=== PATIENT | female | born 1975 | race African-American/Black ===

== ENCOUNTER → 2018-07-21 | Outpatient (REF) | payer OTHER | LOC: M SFHCLERA 11:49 | PROVIDERS: ATTEND Nurse Practitioner Family | DX: R10.9 Unspecified abdominal pain (principal) ==

== ENCOUNTER → 2018-08-06 | Outpatient (CLI) | payer MEDICAID ==
[~2018-08-06] MED LIST: AUGM875T28 PO; IRON TABLET; METF500T13 PO; PRENTAB55 PO
[2018-08-06 18:36] LABS: BASO % 0.4 % (0.0-1.0); EOS # 0.2 10^3/uL (0.0-0.50); HEMATOCRIT 31.9 % (36.0-47.0); HEMOGLOBIN 10.4 g/dl (12.0-15.5); LYMPH # 2.6 10^3/uL (1.5-4.5); LYMPH % 24.3 % (24.0-44.0); MEAN CORPUSCULAR HEMOGLOBIN 25.7 pg (27.0-33.0); MEAN CORPUSCULAR HGB CONC 32.6 g/dl (32.0-36.5); MONO # 0.8 10^3/uL (0.0-0.8); MONO % 7.8 % (0.0-5.0); NEUTROPHILS # 6.9 10^3/uL (1.8-7.7); NEUTROPHILS % 65.2 % (36.0-66.0); PLATELET COUNT, AUTOMATED 395 10^3/uL (150-450); RED BLOOD COUNT 4.04 10^6/uL (4.00-5.40); WHITE BLOOD COUNT 10.5 10^3/uL (4.0-10.0)
[2018-08-06 18:42] LABS: ALBUMIN 3.2 GM/DL (3.2-5.2); ALT/SGPT 24 U/L (12-78); BILIRUBIN,TOTAL 0.1 MG/DL (0.2-1.0); BLOOD UREA NITROGEN 10 MG/DL (7-18); CALCIUM LEVEL 9.2 MG/DL (8.5-10.1); CARBON DIOXIDE LEVEL 23 MEQ/L (21-32); CHLORIDE LEVEL 101 MEQ/L (98-107); CREATININE FOR GFR 0.66 MG/DL (0.55-1.30); GLOMERULAR FILTRATION RATE > 60.0 (>58); GLUCOSE, FASTING 237 MG/DL (70-100); POTASSIUM SERUM 4.4 MEQ/L (3.5-5.1); SODIUM LEVEL 134 MEQ/L (136-145); TOTAL PROTEIN 8.3 GM/DL (6.4-8.2)
[2018-08-06 18:52] LABS: HEMOGLOBIN A1c 8.5 %
[2018-08-06 19:39] LABS: CHLAMYDIA DNA AMPLIFICATION NEGATIVE (NEGATIVE); GC DNA AMPLIFICATION NEGATIVE (NEGATIVE)
[2018-08-07 11:42] LABS: RUBELLA IgG QUALITATIVE IMMUNE (IMMUNE)
[2018-08-07 12:10] LABS: HEPATITIS C VIRUS ABY INDEX 0.1 INDEX (<0.8)
[2018-08-07 12:11] LABS: HIV 1&2 SCREEN CENTAUR NEGATIVE (NEGATIVE)
== END ==
LOC: M SMT 14:59
PROVIDERS: ATTEND Advanced Practice Midwife
DX: O24.111 Pre-existing type 2 diabetes mellitus, in pregnancy, first trimester (principal)

== ENCOUNTER 2018-08-08 03:55 | Emergency (ER) | payer MEDICAID ==
[~2018-08-08] VITALS: Ht 170.2 cm; Wt 114.5 kg
[2018-08-08 03:55] VITALS: BP 157/84
[2018-08-08] MEDS ORDERED: AUGM875T28 PO (04:19)
[2018-08-08] MEDS ORDERED: AUGMENTIN 875 MG TAB PO ONE (04:30)
[2018-08-08] MEDS ORDERED: OXYCODONE/APAP 5MG/325MG(BULK FOR ED) 1 TABLET PO ONE (04:30)
== END 2018-08-08 04:36 | disposition home or self-care (01) ==
LOC: M ED 03:55
DX: O99.89 Other specified diseases and conditions complicating pregnancy, childbirth and the puerperium (principal); L73.2 Hidradenitis suppurativa; Z88.1 Allergy status to other antibiotic agents; Z88.2 Allergy status to sulfonamides; Z3A.09 9 weeks gestation of pregnancy

== ENCOUNTER 2018-08-11 12:08 | Observation (INO) | payer MEDICAID ==
[~2018-08-11] VITALS: Ht 170.2 cm; Wt 114.5 kg
[~2018-08-11 12:08] MED LIST changes: -IRON TABLET; -METF500T13 PO; -PRENTAB55 PO
[2018-08-11] MEDS ORDERED: PERCOCET 5MG/325MG TAB PO ONE (13:00)
--- NOTE | 2018-08-11 15:00 | REP ---
RIGHT GROIN, EXTREMITY NONVASCULAR ULTRASOUND: 08/11/2018. Clinical history: Right groin mass. Solid versus fluid. States for a year. Findings: Right upper inner thigh palpable region shows a complex mass measuring 5.3 x 3.2 x 3.3 cm. The mass has arterial flow within it and there is active bleeding noted from the mass with some arterial swirling visible in an echogenic region. This could be pseudoaneurysm. Impression: 1. There is a 5.3 x 3.2 x 3.3 cm mass in the proximal inner thigh with complex features. Some mild blood flow seen within portions of it. There is some active bleeding noted from this mass and a pattern of arterial swelling that may reflect a possible pseudoaneurysm. Electronically Signed by Vivek Melo MD 08/11/2018 05:56 P
[2018-08-11] MEDS ORDERED: LABETALOL 100 MG TAB PO ONE (15:15)
[2018-08-11] MEDS ORDERED: NS 1,000 ML IV SCH (17:00)
[2018-08-11] MEDS ORDERED: MORPHINE 2 MG/ML 1ML SYRINGE (J2270) IV ONE (17:15)
[2018-08-11] MEDS ORDERED: ONDANSETRON 4MG/2ML VIAL (J2405) IV ONE (17:15)
[2018-08-11 17:19] LABS: HEMATOCRIT 30.6 % (36.0-47.0); MEAN CORPUSCULAR HEMOGLOBIN 26.2 pg (27.0-33.0); MEAN CORPUSCULAR HGB CONC 32.7 g/dl (32.0-36.5); MEAN CORPUSCULAR VOLUME 80.1 fl (80.0-96.0); PLATELET COUNT, AUTOMATED 401 10^3/uL (150-450); RED BLOOD COUNT 3.82 10^6/uL (4.00-5.40); WHITE BLOOD COUNT 9.8 10^3/uL (4.0-10.0)
[2018-08-11 17:34] LABS: INR 1.1; PROTHROMBIN TIME 14.3 SECONDS (12.1-14.4)
[2018-08-11 17:40] LABS: BLOOD UREA NITROGEN 9 MG/DL (7-18); CARBON DIOXIDE LEVEL 22 MEQ/L (21-32); CHLORIDE LEVEL 102 MEQ/L (98-107); CREATININE FOR GFR 0.72 MG/DL (0.55-1.30); GLOMERULAR FILTRATION RATE > 60.0 (>58); GLUCOSE, FASTING 156 MG/DL (70-100); POTASSIUM SERUM 4.3 MEQ/L (3.5-5.1); SODIUM LEVEL 133 MEQ/L (136-145)
[2018-08-11 17:41] LABS: ALBUMIN 3.3 GM/DL (3.2-5.2); ALT/SGPT 21 U/L (12-78); BILIRUBIN,DIRECT 0.2 MG/DL (0.0-0.2); BILIRUBIN,TOTAL 0.3 MG/DL (0.2-1.0); CALCIUM LEVEL 8.9 MG/DL (8.5-10.1); TOTAL PROTEIN 8.9 GM/DL (6.4-8.2)
[2018-08-11] MEDS ORDERED: PRENTAB55 PO (18:03)
[2018-08-11] MEDS ORDERED: IRON TABLET (18:03)
[2018-08-11] MEDS ORDERED: METF500T13 PO (18:03)
[2018-08-11] MEDS ORDERED: AUGM875T28 PO (18:03)
[2018-08-11] MEDS ORDERED: LIDOCAINE W/EPINEPHRINE 1% 20ML VIAL SC ONE (18:15)
[2018-08-11] MEDS ORDERED: THROMBIN SOLN 5,000 UNITS VIAL TOP ONE (18:15)
[2018-08-11] MEDS ORDERED: MORPHINE 4 MG/ML 1ML VIAL/SYRINGE (J2270) IV PRN (18:15)
--- NOTE | 2018-08-11 19:27 | HPE ---
DATE OF ADMISSION: 08/11/2018 This is a 42-year-old female who is 9 weeks and past history of diabetes, presents to the emergency room due to bleeding inguinal mass. The patient has had this mass she says for the last three years. She said that [place] living [place] another [place], she would be given antibiotics and it would shrink, it would come right back. However, today it was bleeding profusely, so she came to the emergency room (ER) for evaluation. In the emergency room (ER), Dr. Walton, one of the general surgeons, who saw the patient and did recommend surgical intervention this evening. The patient is kept nothing by mouth and given IV morphine for pain and she will be sent to the emergency room (ER) for surgical exploration of this site. The patient is awake and oriented times 3; and at this time has mild pain, 4/10. Again, past medical history of diabetes. She has drug allergies to sulfa medications. FAMILY HISTORY: Noncontributory. SOCIAL HISTORY: The patient denies tobacco, alcohol or illicit drugs. MEDICATIONS SHE TAKES HOME ARE FOLLOWS: - Augmentin one tab orally twice daily - metformin 500 mg orally twice daily - multivitamins one tab orally daily. REVIEW OF SYSTEMS: Negative for all 10 major systems, except what is mentioned in the history of present illness. Vital signs: Blood pressure (BP) is 133/63, heart rate is 160 and regular, respiratory rate 20, temperature is 98.3, oxygen saturation 97% on room air. Head atraumatic, normocephalic. Neck supple, no jugular venous distension (JVD). Lungs are clear to auscultation. S1, S2 audible. No murmurs appreciated. Abdomen soft. Positive bowel sounds. No pedal edema. Skin examination: There is a large inguinal mass with two open sinus drainages, draining bright red blood. Neurological examination: The patient awake, alert and oriented times 3. LABORATORY: Sodium 133, potassium 4.3, chloride 102, CO2 22, BUN 9, creatinine 0.72, glucose 156, white blood count (WBC) 9.8, hemoglobin 10.0, hematocrit 30.6, platelets are 401,000. INR is 1.10. IMPRESSION: 1. Right inguinal mass. PLAN: The patient is to be kept nothing by mouth and started on IV fluids with normal saline 150 mL an hour. She is medically optimized at moderate risk for high risk procedure and will continue following the patient's care postoperatively. Dr. Olmstead has been officially consulted, our vascular surgeon, who actually performed the surgery.
[2018-08-11 20:20] VITALS: BP 167/78
[2018-08-11] MEDS: NS 1,000 ML IV SCH (20:59)
[2018-08-12] VITALS: BP 122/64
[2018-08-12] MEDS: NS 1,000 ML IV SCH ×2 (02:49→07:30)
[2018-08-12] MEDS ORDERED: HumaLOG INSULIN (NovoLOG) PER UNIT SC SCH ×3 (06:00→21:00)
[2018-08-12 07:36] LABS: BASO % 0.4 % (0.0-1.0); EOS # 0.1 10^3/uL (0.0-0.50); EOS % 1.5 % (0.0-3.0); HEMATOCRIT 25.8 % (36.0-47.0); HEMOGLOBIN 8.2 g/dl (12.0-15.5); LYMPH # 1.9 10^3/uL (1.5-4.5); LYMPH % 24.6 % (24.0-44.0); MEAN CORPUSCULAR HEMOGLOBIN 25.9 pg (27.0-33.0); MEAN CORPUSCULAR HGB CONC 31.8 g/dl (32.0-36.5); MEAN CORPUSCULAR VOLUME 81.4 fl (80.0-96.0); MONO # 1.2 10^3/uL (0.0-0.8); MONO % 16.5 % (0.0-5.0); NEUTROPHILS # 4.2 10^3/uL (1.8-7.7); NEUTROPHILS % 56.5 % (36.0-66.0); PLATELET COUNT, AUTOMATED 310 10^3/uL (150-450); RED BLOOD COUNT 3.17 10^6/uL (4.00-5.40); WHITE BLOOD COUNT 7.5 10^3/uL (4.0-10.0)
[2018-08-12 08:00] VITALS: BP 126/75
[2018-08-12] MEDS ORDERED: metFORMIN (GLUCOPHAGE) 500 MG TAB PO SCH (08:00)
[2018-08-12 08:02] LABS: BLOOD UREA NITROGEN 6 MG/DL (7-18); CALCIUM LEVEL 8.1 MG/DL (8.5-10.1); CARBON DIOXIDE LEVEL 24 MEQ/L (21-32); CHLORIDE LEVEL 104 MEQ/L (98-107); CREATININE FOR GFR 0.62 MG/DL (0.55-1.30); GLOMERULAR FILTRATION RATE > 60.0 (>58); GLUCOSE, FASTING 141 MG/DL (70-100); SODIUM LEVEL 135 MEQ/L (136-145)
[2018-08-12] MEDS ORDERED: DEXTROSE 50% 50 ML SYRINGE IV PRN (08:30)
[2018-08-12] MEDS ORDERED: ACETAMINOPHEN TAB 650MG DOSE (2X325MG) PO PRN (08:30)
[2018-08-12] MEDS ORDERED: GLUCOSE 4 GM CHEW TABLET PO PRN (08:30)
[2018-08-12] MEDS ORDERED: GLUCAGON FOR INJ 1 MG VIAL (J1610) SC PRN (08:30)
[2018-08-12] MEDS ORDERED: PRENATAL VITAMINS CHEWABLE TABLET PO SCH (09:00)
--- NOTE | 2018-08-12 11:01 | CR.PDOC ---
General Date of Consultation: Aug 11, 2018 Referring Provider: CYNDI SOTO DO Consultation REASON FOR CONSULTATION: Bleeding from mass right groin. HISTORY OF PRESENT ILLNESS:. Ms. Street is a very pleasant 42-year-old patient, currently 9 weeks , who presents to the emergency room with bleeding from her right groin. She has a history of hidradenitis that is remained relatively dormant in the bilateral axillas, but has been intermittently active in the right groin over the past 3 years. In the past, the patient has received treatment with antibiotics and the right groin inflammation has subsided temporarily, but then returns after the antibiotics are complete. She has noticed increased inflammation and tenderness in the right groin over the past week. Ends a few days ago she noticed some bleeding from several areas of excoriation over the mass. She was seen in an ER on Friday and given oral antibiotics and sent home. She returns to the ER tonight with ongoing bleeding from the mass. The emergency room physician ordered an ultrasound of the mass which revealed a 5.3 cm x 3.2 cm x 3.3 cm dense mass in the proximal inner thigh with complex features and some blood flow and swirling within a small area of the central mass suggestive of a pseudoaneurysm. I discussed with the patient that I believe this was the source of the bleeding. Likely when she had increased inflammation in the area eroded through a small superficial artery resulting in a pseudoaneurysm. I discussed with the patient and her fianc at the bedside, but the best option would be to perform a thrombin injection under ultrasound guidance with local anesthesia only to resolve the bleeding issue. She would then need to be admitted for antibiotics and pain control for the inflammation from the hidradenitis. We discussed the risks, benefits and alternatives to thrombin injection. I feel this is a very low risk procedure for the patient. We want to prevent any wrist to her and her fetus at this time. This procedure is done percutaneously with a small amount of local anesthesia and can be done at the bedside under ultrasound guidance which poses little to no risk to the fetus. If this pseudoaneurysm is a source of bleeding. As we suspected the benefit is the bleeding should resolve after thrombosis of the pseudoaneurysm. One of the risks is that there is a chance this is not the source of the bleeding at which point we would have to reevaluate the situation and she may need an additional procedure if that is the case. The patient and her fijosias were thoroughly counseled and she was agreeable to proceed with the procedure and informed consent was obtained. HOME MEDICATIONS: Please see medication reconciliation. PAST MEDICAL HISTORY: 1. Hidradenitis of the bilateral axilla and the right groin. 2. Diabetes. 3. , 9 weeks gestation. 4. Anemia PAST SURGICAL HISTORY: 1. None FAMILY HISTORY: Father: Heart disease Mother: Diabetes SOCIAL HISTORY: Marital status and/or living arrangements: Patient lives with her fijosias Children:. She has no children, but is She denies tobacco, alcohol, or illicit drug use at this time REVIEW OF SYSTEMS: CONSTITUTIONAL: No recent history of fevers chills. HEENT: No history of new vision changes, trouble hearing, trouble swallowing CARDIOVASCULAR: No chest pain, no history of arrhythmias. RESPIRATORY: No shortness of breath, no hemoptysis, no cough. GENITOURINARY: No dysuria or hesitation or retention. MUSCULOSKELETAL: No history of back pain, joint pain or muscle pain. No history of claudication or rest pain. Mass right groin with intermittent inflammation pain and drainage GASTROINTESTINAL: No history of nausea, vomiting, diarrhea, constipation or blood in the stool. SKIN: No rashes or history of skin cancer. NEUROLOGICAL:. No history of headaches, seizures or focal neurologic deficits. PSYCHIATRIC: No history of anxiety, depression or suicidal ideations. ENDOCRINE: + history of diabetes, no history of thyroid disease. HEMATOLOGIC/LYMPHATIC: No history of lymphadenopathy or platelet disorders. Positive history of anemia PHYSICAL EXAMINATION: VITAL SIGNS: Please see below. GENERAL APPEARANCE: Well-appearing patient. No acute distress. HEENT: Normocephalic, vision grossly intact, TMI, normal dentition, no masses or lymphadenopathy of the neck, no carotid bruits RESPIRATORY: Clear to auscultation and no wheezes or rales noted. CARDIOVASCULAR: Regular rate and rhythm. ABDOMEN: Soft, nontender, nondistended, positive bowel sounds. EXTREMITIES: +2 pulses bilateral upper and lower extremities. In the right groin. There is an indurated, erythematous, firm mass, it is very tender to palpation. There are several heaped up areas of tissue that are open excoriated and have slow, continuous oozing of dark blood. NEUROLOGICAL: Moves all extremities equally, no focal neurologic deficits noted. PSYCHIATRIC:. Pleasant and cooperative. LABORATORY DATA: Please see below. IMAGING: I have reviewed the ultrasound images. There is a dense complex mass in the right groin and the superior medial thigh measuring approximately 5 cm x 3 cm x 3 cm and in the superficial central area of this. There is a small pseudoaneurysm. There is likely fed by a small peripheral superficial artery. The pseudoaneurysm is partially thrombosed, but there is still active swirling indicating partial patency. There is a long narrow neck leading up to the pseudoaneurysm through the mass, but the actual artery supplying this cannot be seen and is likely very small. ASSESSMENT/PLAN: 1. Percutaneous thrombin injection of the pseudoaneurysm within the right groin massive inflammation under ultrasound guidance at the bedside. 2. Admit to hospitalist service for antibiotics to treat the hidradenitis and active inflammation in the right groin and pain control postprocedure. Vital Signs/I&O Vital Signs Date Time Temp Pulse Resp B/P (MAP) Pulse Ox O2 Delivery O2 Flow Rate FiO2 08/12/18 08:00 98.1 102 16 126/75 (92) 98 08/11/18 20:13 Room Air I&O- Last 24 Hours up to 6 AM 08/12/18 06:00 Intake Total 1350 ml Output Total 750 ml Balance 600 ml Laboratory Data Labs 24H Laboratory Tests 2 08/11/18 17:05: Nucleated Red Blood Cells % (auto) 0.0, Prothrombin Time 14.3, Prothromb Time International Ratio 1.10, Anion Gap 9, Glomerular Filtration Rate > 60.0, Calcium Level 8.9, Aspartate Amino Transf (AST/SGOT) 14, Alanine Aminotransferase (ALT/SGPT) 21, Alkaline Phosphatase 66, Total Bilirubin 0.3, Direct Bilirubin 0.2, Total Protein 8.9H, Albumin 3.3, Albumin/Globulin Ratio 0.59L 08/11/18 21:23: Bedside Glucose (Misc Panel) 204H 08/12/18 07:13: Nucleated Red Blood Cells % (auto) 0.0, Anion Gap 7L, Glomerular Filtration Rate > 60.0, Calcium Level 8.1L, Immature Granulocyte % (Auto) 0.5, White Blood Count 7.5, Red Blood Count 3.17L, Hemoglobin 8.2L, Hematocrit 25.8L, Mean Corpuscular Volume 81.4, Mean Corpuscular Hemoglobin 25.9L, Mean Corpuscular Hemoglobin Concent 31.8L, Red Cell Distribution Width 14.2, Platelet Count 310, Neutrophils (%) (Auto) 56.5, Lymphocytes (%) (Auto) 24.6, Monocytes (%) (Auto) 16.5H, Eosinophils (%) (Auto) 1.5, Basophils (%) (Auto) 0.4, Neutrophils # (Auto) 4.2, Lymphocytes # (Auto) 1.9, Monocytes # (Auto) 1.2H, Eosinophils # (Auto) 0.1, Basophils # (Auto) 0.0, Blood Urea Nitrogen 6L, Creatinine 0.62, Sodium Level 135L, Potassium Level 4.0, Chloride Level 104, Carbon Dioxide Level 24 CBC/BMP Laboratory Tests 08/11/18 17:05 Red Blood Count 3.82 L, Mean Corpuscular Volume 80.1, Mean Corpuscular Hemoglobin 26.2 L, Mean Corpuscular Hemoglobin Concent 32.7, Red Cell Distribution Width 14.2 08/12/18 07:13 Red Blood Count 3.17 L, Mean Corpuscular Volume 81.4, Mean Corpuscular Hemoglobin 25.9 L, Mean Corpuscular Hemoglobin Concent 31.8 L, Red Cell Distribution Width 14.2, Neutrophils (%) (Auto) 56.5, Lymphocytes (%) (Auto) 24.6, Monocytes (%) (Auto) 16.5 H, Eosinophils (%) (Auto) 1.5, Basophils (%) (Auto) 0.4, Neutrophils # (Auto) 4.2, Lymphocytes # (Auto) 1.9, Monocytes # (Auto) 1.2 H, Eosinophils # (Auto) 0.1, Basophils # (Auto) 0.0, Calcium Level 8.1 L Allergies Coded Allergies: Sulfa Antibiotics (Verified Allergy, Intermediate, rash, 08/08/18) Home Medications Scheduled Amoxicillin/Clavulanate Potas (Augmentin 875-125 mg) 1 Tab Tab, 1 TAB PO BID, (Reported) FILLED 08/08/2018 FOR 10 DAYS Metformin Hydrochloride (Metformin HCl) 500 Mg Tab, 500 MG PO BID, (Reported) Multivitamins/ ( 19) 1 Tab Tab, 1 TAB PO DAILY, (Reported) Miscellaneous Medications [Iron Tablet] , (Reported) QUYNH PIERRE MD Aug 12, 2018 11:00
--- NOTE | 2018-08-12 13:10 | IPNPDOC ---
Date Seen The patient was seen on 08/12/18. Progress Note SUBJECTIVE: Patient seen and examined. She says she is feeling better today- pain controlled with tylenol. She had some sanguinous drainage on her dressing when the nurse changed it this morning, but per the patient and the nurse there was no active bleeding. OBJECTIVE: A&Ox3, NAD CTA-B RR tacchy HR 108 Abd soft NT R groin mass still with erythema and induration today, but less TTP, and no drainage noted. Dressing clean. +2 distal pulses ASSESSMENT AND PLAN: Ms Street is a very pleasant 42yo patient POD #1 from a thrombin injection of a small superficial PSA within an inflammed area of hidradenitis in the right groin. 1. Ok to shower with dressings off. Encourage frequent showers when home. Dry dressings until inflammation resolves. 2. Follow up with Dr Walton outpatient RE: hidradenitis 3. Ok for d/c home from vascular standpoint when stable from a clinical/infection standpoint. 4. Vascular follow up PRN. VS, I&O, 24H, [facility] Vital Signs/I&O Vital Signs Date Time Temp Pulse Resp B/P (MAP) Pulse Ox O2 Delivery O2 Flow Rate FiO2 08/12/18 08:00 98.1 102 16 126/75 (92) 98 08/11/18 20:13 Room Air I&O- Last 24 Hours up to 6 AM 08/12/18 06:00 Intake Total 1350 ml Output Total 750 ml Balance 600 ml Laboratory Data 24H LABS Laboratory Tests 2 08/11/18 17:05: Nucleated Red Blood Cells % (auto) 0.0, Prothrombin Time 14.3, Prothromb Time International Ratio 1.10, Anion Gap 9, Glomerular Filtration Rate > 60.0, Calcium Level 8.9, Aspartate Amino Transf (AST/SGOT) 14, Alanine Aminotransferase (ALT/SGPT) 21, Alkaline Phosphatase 66, Total Bilirubin 0.3, Direct Bilirubin 0.2, Total Protein 8.9H, Albumin 3.3, Albumin/Globulin Ratio 0.59L 08/11/18 21:23: Bedside Glucose (Misc Panel) 204H 08/12/18 07:13: Nucleated Red Blood Cells % (auto) 0.0, Anion Gap 7L, Glomerular Filtration Rate > 60.0, Calcium Level 8.1L, Immature Granulocyte % (Auto) 0.5, White Blood Count 7.5, Red Blood Count 3.17L, Hemoglobin 8.2L, Hematocrit 25.8L, Mean Corpuscular Volume 81.4, Mean Corpuscular Hemoglobin 25.9L, Mean Corpuscular Hemoglobin Concent 31.8L, Red Cell Distribution Width 14.2, Platelet Count 310, Neutrophils (%) (Auto) 56.5, Lymphocytes (%) (Auto) 24.6, Monocytes (%) (Auto) 16.5H, Eosinophils (%) (Auto) 1.5, Basophils (%) (Auto) 0.4, Neutrophils # (Auto) 4.2, Lymphocytes # (Auto) 1.9, Monocytes # (Auto) 1.2H, Eosinophils # (Auto) 0.1, Basophils # (Auto) 0.0, Blood Urea Nitrogen 6L, Creatinine 0.62, Sodium Level 135L, Potassium Level 4.0, Chloride Level 104, Carbon Dioxide Level 24 08/12/18 11:19: Bedside Glucose (Misc Panel) 190H CBC/BMP Laboratory Tests 08/11/18 17:05 Red Blood Count 3.82 L, Mean Corpuscular Volume 80.1, Mean Corpuscular Hemoglobin 26.2 L, Mean Corpuscular Hemoglobin Concent 32.7, Red Cell Distributi on Width 14.2 08/12/18 07:13 Red Blood Count 3.17 L, Mean Corpuscular Volume 81.4, Mean Corpuscular Hemoglobin 25.9 L, Mean Corpuscular Hemoglobin Concent 31.8 L, Red Cell Distr ibution Width 14.2, Neutrophils (%) (Auto) 56.5, Lymphocytes (%) (Auto) 24.6, Monocytes (%) (Auto) 16.5 H, Eosinophils (%) (Auto) 1.5, Basophils (%) (Auto) 0.4, Neutrophils # (Auto) 4.2, Lymphocytes # (Auto) 1.9, Monocytes # (Auto) 1.2 H, Eosinophils # (Auto) 0.1, Basophils # (Auto) 0.0, Calcium Level 8.1 L QUYNH PIERRE MD Aug 12, 2018 13:10
[2018-08-12 13:22] LABS: HEMATOCRIT 24.4 % (36.0-47.0); HEMOGLOBIN 7.9 g/dl (12.0-15.5)
--- NOTE | 2018-08-12 14:42 | REP ---
FIRST TRIMESTER OB ULTRASOUND: 08/12/2018. Clinical history: Supervision of first trimester. Findings: Transabdominal images were performed. Uterus is anteverted. There is a gestational sac in the fundus. Within the sac is a pole having a crown-rump length of 2.8 cm corresponding to 9 weeks 5 days. This would give an EDC of 03/12/2019. heart activity noted at 176. There is no visible subchorionic bleed. The right ovary shows a 3.1 cm cystic area likely a corpus luteum cyst. I do not see free fluid in the pelvis. No other finding. Impression: 1. Single intrauterine gestation at 9 weeks 5 days by crown-rump length giving EDC 03/12/2019, by LMP EDC 03/13/2019. 2. heart rate 176 and regular, no evidence of subchorionic bleed. 3. 3.1 cm right ovarian corpus luteum. Electronically Signed by Vivek Melo MD 08/12/2018 09:24 P
--- NOTE | 2018-08-12 15:39 | RO ---
DATE OF PROCEDURE: 08/11/2018 PREPROCEDURE DIAGNOSIS: Mild bleeding from hydradenitis in the right groin. POSTPROCEDURE DIAGNOSIS: Mild bleeding from hydradenitis in the right groin. OPERATIVE PROCEDURE: Thrombin injection pseudoaneurysm within right groin mass. SURGEON: Ofelia Valdez MD ANESTHESIA: Local INDICATION FOR PROCEDURE: Ms. Street is a very pleasant 42-year-old patient who presented to the ER with a 3 year history of hydradenitis in her axillas which has remained relatively dormant and active hydradenitis in her right groin which waxes and wanes with new antibiotic regimens. Alphonse night she went to the emergency room with oozing and mild bleeding from several areas over the inflammatory area in her right groin. She was sent home with antibiotics and returned to the emergency room today with ongoing oozing and bleeding from several different excoriated areas over the inflamed mass in her right groin. An ultrasound was ordered by our emergency room physician and I reviewed these images. It appeared that the patient had a large inflammatory mass measuring 5 cm x 3 cm x 3 cm and in the center of this mass very superficially there was a small arterial vessel that was feeding a pseudoaneurysmal area. This appeared to be the source of her ongoing oozing. I discussed the risks, benefits and alternative to a thrombin injection to see if this would alleviate the ongoing bleeding that the patient was experiencing. She was agreeable to proceed and informed consent was obtained. DESCRIPTION OF PROCEDURE: The patient was brought to an ultrasound room and an robot technician was kind enough to help me prep and drape her in a sterile fashion. A time-out was performed. Under ultrasound guidance we identified the area of flow within the mass and the neck feeding the flow from a small peripheral arterial source. Local anesthesia was used to anesthetize the skin. 5000 units of thrombin was prepared and a total of 2 mL of thrombin was injected with complete thrombosis of the area under ultrasound guidance. We carefully examined with ultrasound and found there was no additional flow within the mass and also clinically the bleeding stopped once the thrombin had been injected. The patient said this actually made her pain somewhat better, which I did not expect, but was pleasantly surprised to hear. We then thoroughly cleaned the area with soap and water and sterile dressings were applied. The patient tolerated the procedure well. There were no complications. Estimated blood loss from the procedure itself was negligible. There were no specimens. There were no drains. PLAN: Is for the patient to be admitted to the hospitalist service for antibiotics for the inflammation of her hydradenitis of the right groin. No further followup from vascular is needed if she does not have any ongoing bleeding issues. TONE
--- NOTE | 2018-08-13 09:31 | DS.PDOC ---
Discharge Summary General Date of Admission Aug 11, 2018 at 18:10 Date of Discharge 08/12/2018 Attending Physician: SAI MACK MD Specialist/Consultants Involve: QUYNH PIERRE MD Discharge Summary PROCEDURES PERFORMED DURING STAY: Thrombin injection right groin mass. ADMITTING DIAGNOSES: 1. Bleeding right inguinal mass DISCHARGE DIAGNOSES: 1. Right groin pseudoaneurysm 2. Hydradenitis suppurativa, acute inflammation in the right groin 3. Acute anemia 4. 9 weeks 5. Gestational diabetes 6. Obesity COMPLICATIONS/CHIEF COMPLAINT: Pelvic Mass. HISTORY OF PRESENT ILLNESS: 42-year-old female, who is 9 weeks , presented to the ER for bleeding from the right groin. She states she has a history of hydradenitis for the past 3 years, and this spot often leads on and off, however improved after she is given antibiotics. Since Friday night has been using continuously in the right groin and did not improve with antibiotics and she was seen in the ER and then ultrasound in the ER revealed a large inflammatory mass measuring 5 x 3 x 3 cm, with a small arterial vessel in the middle that was feeding the pseudoaneurysm. HOSPITAL COURSE: Vascular surgery was consulted, and patient underwent thrombin injection from the ER. Tolerated procedure well, no complications overnight. In the morning, however she was concerned about her . Doppler was done, could not find the fetus. She normally follows with [facility], and thus her primary OB was called and this concern was discussed. Per Catrachita Kendrick, a this early on would not be detectable by Doppler, but would on ultrasound. Ultrasound revealed a viable with heart rate in the 170s. This, along with the remaining plan of care, was discussed in depth with patient. Per her OB and her vascular surgeon, she was safe for discharge. Of note, patient presented with hemoglobin of 10 on admission,down to 8.2 the next morning after the procedure, and 7.9 later that day prior to discharge. Part of this was likely also dilutional. Patient was consented for transfusion, however declined and stated she would follow-up her blood levels in the clinic. She was discharged home, with instructions to closely follow-up with her PCP and OB. All questions were answered. DISCHARGE MEDICATIONS: Please see below. ALLERGIES: Please see below. PHYSICAL EXAMINATION ON DISCHARGE: VITAL SIGNS: Please see below. GENERAL: NAD, A&Ox3 HEENT: nc, at, EOMI NECK: supple, no JVD CARDIOVASCULAR EXAMINATION: RRR, normal S1 S2 RESPIRATORY EXAMINATION: CTAB, no w/r/r ABDOMINAL EXAMINATION: soft, nt/nd, normoactive bowel sounds EXTREMITIES: 2+ pulses b/l, no cyanosis or edema SKIN: Dressing in right groin dry and intact. No other visible lesions NEUROLOGICAL EXAMINATION: no focal deficits, able to move all extremities LABORATORY DATA: Please see below. IMAGING: * 08/11/2018 right groin ultrasound: There is a 5.3 x 3.2 x 3.3 cm mass in the proximal inner thigh with complex features. Some mild blood flow seen within portions of it. There is some active bleeding noted from this mass and a pattern of arterial swelling that may reflect a possible pseudoaneurysm. * 08/12/2018 pelvic ultrasound: 1. Single intrauterine gestation at 9 weeks 5 days by crown-rump length giving EDC 03/12/2019, by LMP EDC 03/13/2019. 2. heart rate 176 and regular, no evidence of subchorionic bleed. 3. 3.1 cm right ovarian corpus luteum. PROGNOSIS: good ACTIVITY: As tolerated. DIET: consistent carb DISPOSITION: 01 Home, Self-Care. DISCHARGE INSTRUCTIONS: 1. Follow-up with PCP within 1 week 2. Follow-up with OB within the week for care 3. Follow-up on CBC, H&H as outpatient 4. Return to ER for emergency DISCHARGE CONDITION: Stable. TIME SPENT ON DISCHARGE: Greater than 35 minutes. Vital Signs/I&Os Vital Signs Date Time Temp Pulse Resp B/P (MAP) Pulse Ox O2 Delivery O2 Flow Rate FiO2 08/12/18 08:00 98.1 102 16 126/75 (92) 98 08/11/18 20:13 Room Air I&O- Last 24 Hours up to 6 AM 08/13/18 05:59 Intake Total 1590 ml Output Total 750 ml Balance 840 ml Laboratory Data Labs 24H Laboratory Tests 2 08/12/18 11:19: Bedside Glucose (Misc Panel) 190H CBC/BMP Laboratory Tests 08/12/18 13:02 FSBS Laboratory Tests Test 08/12/18 11:19 Range/Units Bedside Glucose (Misc Panel) 190 70-105 MG/DL Discharge Medications Scheduled Amoxicillin/Clavulanate Potas (Augmentin 875-125 mg) 1 Tab Tab, 1 TAB PO BID, (Reported) FILLED 08/08/2018 FOR 10 DAYS Metformin Hydrochloride (Metformin HCl) 500 Mg Tab, 500 MG PO BID, (Reported) Multivitamins/ ( 19) 1 Tab Tab, 1 TAB PO DAILY, (Reported) Miscellaneous Medications [Iron Tablet] , (Reported) Allergies Coded Allergies: Sulfa Antibiotics (Verified Allergy, Intermediate, rash, 08/08/18) GME ATTESTATION GME ATTESTATION My faculty preceptor for this patient encounter was physically present during the encounter and was fully available. All aspects of the patient interview, examination, medical decision making process, and medical care plan development were reviewed and approved by the faculty preceptor. The faculty preceptor is aware and concurs with the plan as stated in the body of this note and will attest to such by his/her cosignature. KEITH BOGGS DO Aug 13, 2018 09:31
== END 2018-08-12 16:05 | disposition home or self-care (01) ==
LOC: M ED 12:08 → M ED INP 18:10 → M PED 20:20
PROVIDERS: ADMIT Internal Medicine; ATTEND Internal Medicine
DX: O99.411 Diseases of the circulatory system complicating pregnancy, first trimester (principal); I72.8 Aneurysm of other specified arteries; O99.711 Diseases of the skin and subcutaneous tissue complicating pregnancy, first trimester; L73.2 Hidradenitis suppurativa; O99.011 Anemia complicating pregnancy, first trimester; O99.211 Obesity complicating pregnancy, first trimester; O24.415 Gestational diabetes mellitus in pregnancy, controlled by oral hypoglycemic drugs; Z3A.09 9 weeks gestation of pregnancy; Z79.84 Long term (current) use of oral hypoglycemic drugs; Z79.899 Other long term (current) drug therapy; Z88.2 Allergy status to sulfonamides; E66.9 Obesity, unspecified; D64.9 Anemia, unspecified
CPT/HCPCS: 36299; 36415; 76801; 76882; 76942; 80048; 80076; 85014; 85018; 85025; 85027; 85610; 96361; 96374; 96375; 96376; 99285; J2270; J2405

== ENCOUNTER → 2018-09-01 | Outpatient (REF) | payer MEDICAID ==
[~2018-09-01] MED LIST changes: +IRON TABLET; +METF500T13 PO; +PRENTAB55 PO
== END ==
LOC: M LAB REF 17:59
PROVIDERS: ATTEND Obstetrics & Gynecology
DX: O09.511 Supervision of elderly primigravida, first trimester (principal)

== ENCOUNTER → 2018-09-17 | Outpatient (REF) | payer MEDICAID | LOC: M LAB REF 13:03 | PROVIDERS: ATTEND Obstetrics & Gynecology | DX: O24.112 Pre-existing type 2 diabetes mellitus, in pregnancy, second trimester (principal) ==

== ENCOUNTER → 2018-10-15 | Outpatient (CLI) | payer MEDICAID ==
--- NOTE | 2018-10-15 11:50 | REP ---
OB ULTRASOUND: Real-time sonographic evaluation of gravid uterus performed. There is a single living intrauterine gestation, estimated gestational age 18 weeks 5 days, EDC 03/13/2019. Today's measurements indicate appropriate growth. BPD 41 mm = 18 weeks 3 days, 44th percentile HC 151 mm = 18 weeks 1 day, 33rd percentile AC 141 mm = 19 weeks 3 days, 67th percentile Femur length 31 mm = 19 weeks 5 days, 74th percentile HC/AC ratio 1.07, within normal range. Estimated weight 289 grams is at the 73rd percentile. Cervix is closed and measures 3.1 cm in length. heart rate 149 beats per minute. SEEN/GROSSLY UNREMARKABLE Lateral ventricles Yes Posterior fossa Yes Upper lip Yes Four-chamber heart No LVOT No RVOT No Stomach Yes Cord insertion Yes Three vessel cord Yes Kidneys Yes Bladder Yes Spine Yes position: Vertex. Placenta: Anterior and grade 0 with no previa or abruption. Amniotic fluid: Within normal limits. Electronically Signed by Gus Frederick MD 10/15/2018 04:36 P
== END ==
LOC: M RAD 10:25
PROVIDERS: ATTEND Obstetrics & Gynecology
DX: O24.112 Pre-existing type 2 diabetes mellitus, in pregnancy, second trimester (principal); Z3A.18 18 weeks gestation of pregnancy

== ENCOUNTER → 2018-10-30 | Outpatient (CLI) | payer MEDICAID, OTHER ==
[2018-10-30 14:04] LABS: HEMOGLOBIN A1c 7.1 %
== END ==
LOC: M SMT 10:40
PROVIDERS: ATTEND Obstetrics & Gynecology
DX: O24.112 Pre-existing type 2 diabetes mellitus, in pregnancy, second trimester (principal); Z3A.00 Weeks of gestation of pregnancy not specified

== ENCOUNTER → 2018-11-03 | Outpatient (CLI) | payer OTHER ==
--- NOTE | 2018-11-03 10:21 | REP ---
Obstetric ultrasound for anatomy follow-up: Comparison is 10/15/2018. On the comparison study the four-chamber view of the heart and right and left cardiac ventricular outflow tracts could not be optimally demonstrated because of position. The remainder of the anatomy was unremarkable. On the study today the four-chamber view of the heart and the cardiac right and left ventricular outflow tracts are optimally demonstrated and are unremarkable. The remainder of the anatomy was unremarkable previously and is not repeated today. There are no anomalies. There is a single intrauterine gestation in a vertex presentation. There is movement and cardiac activity. The heart rate is 153 beats per minute. The anterior. The placenta is anterior. There is no placenta previa or abruptio. The placenta is grade 1 maturity. Multiple venous lakes are noted within the placenta, slightly more than typical, follow-up of this finding is recommended. The amniotic fluid volume subjectively is low normal. The amniotic fluid index is 9.1, (9.6 - 21.5). Gestational Age: By LMP: 21 w 3 d By First US: 21 w 4 d By Today's US: 20 w 6 d Weight: 382 gm/ 0 lbs, 13 oz Wt% 29% for 21 w 3 d Impression: Amniotic fluid volume is low normal. There are no anomalies. Electronically Signed by Gus Romero MD 11/03/2018 10:13 A
== END ==
LOC: M RAD 08:05
PROVIDERS: ATTEND Obstetrics & Gynecology
DX: O24.112 Pre-existing type 2 diabetes mellitus, in pregnancy, second trimester (principal); Z3A.21 21 weeks gestation of pregnancy

== ENCOUNTER → 2018-12-30 | Outpatient (CLI) | payer OTHER ==
--- NOTE | 2018-12-30 20:33 | REP ---
Clinical: Anatomical evaluation. Comparison: 11/03/2018 . Findings: Examination demonstrates a single live intrauterine in cephalic presentation. motion is identified by technologist. Placenta is noted anterior and grade one without evidence for placenta previa or abruption. Amniotic fluid volume is normal. Cervix measures 3.5 cm in length and appears closed. No evidence for nuchal cord. Gestational age by LMP 29 weeks 4 days with APRIL 03/13/2019 . Gestational age by current measurements 30 weeks 6 days with APRIL 03/04/2019 . FHR equals 135 beats per minute. Estimated weight 1672 grams ( 73rd percentile). Amniotic fluid index: 16.1 cm (9.1 - 23.3) Umbilical cord SD ratio: 2.48 Anatomical assessment demonstrates normal structures including cranium, cavum, facial features, lungs, four-chamber heart/ventricular outflow tracts, diaphragm, stomach, three-vessel cord, kidneys/bladder, and spine. Impression: single live intrauterine in cephalic presentation demonstrating appropriate interval growth. No gross abnormalities are identified. Electronically Signed by Christopher Lopez MD 12/30/2018 08:25 P
== END ==
LOC: M RAD 07:24
PROVIDERS: ATTEND Obstetrics & Gynecology
DX: O24.112 Pre-existing type 2 diabetes mellitus, in pregnancy, second trimester (principal); Z3A.30 30 weeks gestation of pregnancy

== ENCOUNTER → 2018-12-31 | Outpatient (REF) | payer OTHER | LOC: M LAB REF 17:06 | PROVIDERS: ATTEND Obstetrics & Gynecology | DX: Z11.3 Encounter for screening for infections with a predominantly sexual mode of transmission (principal) ==

== ENCOUNTER → 2019-01-19 | Outpatient (CLI) | payer OTHER ==
--- NOTE | 2019-01-19 18:16 | REP ---
Clinical: Sternal diabetes. well-being. Comparison: 12/30/2018 . Findings: Examination demonstrates a single live intrauterine in cephalic presentation. motion is identified by technologist. Placenta is noted anterior and grade one without evidence for placenta previa or abruption. Amniotic fluid volume is normal. No evidence for nuchal cord. Gestational age by LMP 32 weeks 3 days with APRIL 03/13/2019 . Gestational age by current measurements 33 weeks 1 day with APRIL 03/08/2019 . FHR equals 152 beats per minute. Estimated weight 2237 grams ( 68th percentile). Amniotic fluid index: 9.2 cm (8.5 - 24.3) Umbilical cord SD ratio: 2.26 (2.30 - 3.30). Impression: Single live advanced gestation in cephalic presentation demonstrating appropriate estimated weight/growth. Electronically Signed by Christopher Lopez MD 01/19/2019 06:07 P
== END ==
LOC: M RAD 17:28
PROVIDERS: ATTEND Obstetrics & Gynecology
DX: O24.112 Pre-existing type 2 diabetes mellitus, in pregnancy, second trimester (principal)

== ENCOUNTER → 2019-02-09 | Outpatient (REF) | payer OTHER | LOC: M LAB REF 17:25 | PROVIDERS: ATTEND Obstetrics & Gynecology | DX: O24.113 Pre-existing type 2 diabetes mellitus, in pregnancy, third trimester (principal); Z3A.00 Weeks of gestation of pregnancy not specified ==

== ENCOUNTER → 2019-02-09 | Outpatient (CLI) | payer OTHER ==
--- NOTE | 2019-02-09 20:00 | REP ---
OB ULTRASOUND: Real-time sonographic evaluation of the gravid uterus performed. There is a single living intrauterine gestation, estimated gestational age 35 weeks 3 days, EDC 03/13/2019. Today's measurements indicate appropriate growth, although percentiles are increasing compared to the prior study of 01/19/2019. BPD 90 mm = 36 weeks 3 days, 65th percentile HC 329 mm = 37 weeks 3 days, 84th percentile AC 345 mm = 38 weeks 3 days, greater than 95th percentile FL 73 mm = 37 weeks 1 day, 75th percentile HC/AC ratio 0.95, within normal range. Estimated weight 3302 grams, 93rd percentile, previously 68th percentile. heart rate 153 beats per minute. Amniotic fluid within normal limits, MILES 12.6 within normal range of 7.8 to 24.9. S/D ratio 2.06, within normal range of 2.0 to 3.0. RI 0.52, below normal range of 0.59 to 0.75. position vertex. Placenta anterior and grade 2 with no previa or abruption. Electronically Signed by Gus Frederick MD 02/10/2019 02:34 P
== END ==
LOC: M RAD 17:30
PROVIDERS: ATTEND Obstetrics & Gynecology
DX: O24.112 Pre-existing type 2 diabetes mellitus, in pregnancy, second trimester (principal); Z3A.35 35 weeks gestation of pregnancy

== ENCOUNTER → 2019-02-09 | Outpatient (CLI) | payer OTHER ==
[2019-02-09 17:39] LABS: HEMOGLOBIN A1c 6.4 %
== END ==
LOC: M SMT 14:36
PROVIDERS: ATTEND Obstetrics & Gynecology
DX: O24.113 Pre-existing type 2 diabetes mellitus, in pregnancy, third trimester (principal)

== ENCOUNTER 2019-03-02 13:35 | Inpatient (IN) | payer OTHER ==
[2019-03-02] VITALS (7 sets, daily range): BP systolic 109–141; BP diastolic 68–80
[~2019-03-02] VITALS: Ht 170.2 cm; Wt 108.5 kg
[2019-03-02 15:30] LABS: HEMATOCRIT 32.4 % (36.0-47.0); HEMOGLOBIN 10.7 g/dl (12.0-15.5); MEAN CORPUSCULAR HEMOGLOBIN 27.3 pg (27.0-33.0); MEAN CORPUSCULAR VOLUME 82.7 fl (80.0-96.0); PLATELET COUNT, AUTOMATED 312 10^3/uL (150-450); RED BLOOD COUNT 3.92 10^6/uL (4.00-5.40); WHITE BLOOD COUNT 5.6 10^3/uL (4.0-10.0)
[2019-03-02] MEDS: miSOPROStol 50 MCG 1/2 TAB (S0191) SL SCH ×2 (16:12→21:54)
--- NOTE | 2019-03-02 16:57 | HPE ---
DATE OF ADMISSION: 03/02/2019 A 42-year-old (G) 1, para (P) 0 female at 38-3/7 weeks gestation by last menstrual period (LMP), consistent with an 8-week ultrasound, estimated date of confinement (EDC) of 03/13/2019, presents for labor induction. The indication for induction less than 39 weeks is type 2 diabetes with non-reasurring testing. She had decreased variability and a late deceleration on routine monitoring in the office. She had occasional contractions. She denies vaginal bleeding. COURSE: The patient initiated care at 8 weeks gestation on 08/06/2018. Her first trimester blood pressure was 124/64. She was initially on metformin for her diabetes. As she followed her sugars and control became worse, she eventually transitioned to insulin. She did have overall improvement in her hemoglobin A1c levels with initial hemoglobin A1c of 8.5. Her most recent hemoglobin A1c was improved at 6.4. MEDICAL HISTORY: 1. Type 2 diabetes. 2. Hidradenitis suppurativa. SURGICAL HISTORY: 1. Dilation and curettage (D and C) in 2009. ALLERGIES: SULFA. SOCIAL HISTORY: The patient lives in [place]. She is currently from her . She denies cigarettes, alcohol, or drug use. FAMILY HISTORY: Noncontributory. PHYSICAL EXAMINATION: Blood pressure 134/82, weight 241. No apparent distress. Head and neck exam: Normal. Lungs: Clear. Heart: Regular rate and rhythm. Abdomen: Nontender, gravid. heart tones are category 1 here. Sterile vaginal exam: 1 cm, 50%, -2, posterior, soft vertex. Contractions: Irregular. Extremities: Nontender. LABS: Blood type O+, Rubella immune, RPR nonreactive. GBS positive October 2018. ASSESSMENT: A 42-year-old 1 at 38-3/7 weeks gestation, type 2 diabetes - on insulin, presents for labor induction due to nonreassuring testing. PLAN: The patient was admitted on 03/02/2019. Will initiate antibiotics for Group B Streptococcus (GBS) prophylaxis at the onset of labor. Risks of induction were discussed.
[2019-03-03] VITALS (61 sets, daily range): BP systolic 98–193; BP diastolic 55–92
[2019-03-03] MEDS ORDERED: OXYTOCIN DRIP 30 UNITS in APPROPRIATE DILUENT 1 EA IV SCH ×2 (01:30→16:52)
[2019-03-03] MEDS ORDERED: PROMETHAZINE INJ 25 MG/ML VIAL (J2550) IV ONE (01:30)
[2019-03-03] MEDS ORDERED: BUTORPHANOL 2 MG/ML INJ (J0595) IV ONE (01:30)
[2019-03-03] MEDS ORDERED: PENICILLIN G POTASSIUM IV 5 MU in D5W MINI-BAG PLUS 100 ML IV STA (01:45)
[2019-03-03] MEDS: LR 1,000 ML IV SCH ×3 (01:47→16:52)
[2019-03-03] MEDS ORDERED: FENTANYL 2MCG/ML ROPIVACAINE 0.2% IN 0.9% NACL 100ML IVBAG As Ordered ONE (02:03)
[2019-03-03] MEDS ORDERED: EPIDURAL COMMENT XX SCH (02:45)
[2019-03-03] MEDS ORDERED: REFRIGERATOR IV KEYS XX PRN (02:45)
[2019-03-03] MEDS ORDERED: EPIDURAL/PCA KEYS XX PRN (02:45)
[2019-03-03] MEDS ORDERED: ONDANSETRON 4MG/2ML VIAL (J2405) IV PRN ×3 (02:45→17:15)
[2019-03-03] MEDS ORDERED: LACTATED RINGER'S 1000 ML IV PRN (02:45)
[2019-03-03] MEDS ORDERED: NALOXONE INJ 0.4 MG/1 ML VIAL (J2310) IV PRN ×3 (02:45→16:00)
[2019-03-03] MEDS ORDERED: FENTANYL/ROPIVACAINE/NACL BAG 100 ML EPIDURAL SCH (02:45)
[2019-03-03] MEDS ORDERED: diphenhydrAMINE INJ 50MG/ML VIAL (J1200) IV PRN ×2 (02:45→16:00)
[2019-03-03] MEDS: ePHEDrine SULFATE 25 MG/5 ML(5MG/ML) SYRINGE IV PRN ×2 (03:44→03:54)
[2019-03-03] MEDS: PENICILLIN G POTASSIUM IV 2.5 MU in APPROPRIATE DILUENT 1 EA IV SCH ×3 (06:13→14:11)
[2019-03-03] MEDS ORDERED: LACTATED RINGER'S 1000 ML IV STA (14:25)
[2019-03-03] MEDS ORDERED: AZITHROMYCIN INJ 500 MG, VIAL MATE ADAPTER 1 EACH in D5W 250 ML IV ONE (14:30)
[2019-03-03] MEDS ORDERED: BICITRA 30ML SOLN UDC PO ONE (14:30)
[2019-03-03] MEDS ORDERED: BICITRA 30ML SOLN UDC As Ordered ONE (14:32)
[2019-03-03] MEDS ORDERED: NALBUPHINE HCL 10 MG/ML AMP (J2300) IV PRN (16:00)
[2019-03-03] MEDS ORDERED: METOCLOPRAMIDE INJ 10MG/2ML VIAL (J2765) IV PRN (16:00)
[2019-03-03 16:24] LABS: CORD GAS ABE A -3.8; CORD GAS HCO3 A 24.3 MEQ/L; CORD GAS O2 SAT A 30.7 %; CORD GAS PCO2 A 56.3 mmHg; CORD GAS PH A 7.253 UNITS; CORD GAS PO2 A 15.5 mmHg; CORD GAS SBC A 19.7 MEQ/L
[2019-03-03 16:27] LABS: CORD GAS ABE V -6.3; CORD GAS PCO2 V 54.3 mmHg; CORD GAS PO2 V 26.9 mmHg; CORD GAS SBC V 18.6 MEQ/L; CORD GAS TCO2 V 23.7 MEQ/L
[2019-03-03 16:28] LABS: CORD GAS PH V 7.226 UNITS
[2019-03-03] MEDS ORDERED: MOM 30ML SUSPENSION UDC PO PRN (17:00)
[2019-03-03] MEDS ORDERED: PERCOCET 5MG/325MG TAB PO PRN ×2 (17:00→17:15)
[2019-03-03] MEDS ORDERED: KETOROLAC 30 MG/ML VIAL (J1885) IV SCH (17:00)
[2019-03-03] MEDS ORDERED: MEASLES,MUMPS,RUBELLA VACCINE INJ (MMR-II) (90707) SC SCH (17:00)
[2019-03-03] MEDS ORDERED: RHOGAM 300 MCG (1500 IU) INJ (J2790) IM SCH (17:00)
[2019-03-03] MEDS ORDERED: fentaNYL 100 MCG/2 ML INJECTION (J3010) IV PRN (17:15)
[2019-03-03] MEDS ORDERED: LR 1,000 ML IV SCH (17:15)
[2019-03-03] MEDS: DOCUSATE SODIUM 100 MG CAP PO SCH (21:00)
[2019-03-03] MEDS: KETOROLAC 30 MG/ML VIAL (J1885) IV SCH (21:52)
[2019-03-04] MEDS: LR 1,000 ML IV SCH ×3 (00:52→16:52)
[2019-03-04 02:29] VITALS: BP 133/75
[2019-03-04] MEDS: KETOROLAC 30 MG/ML VIAL (J1885) IV SCH ×2 (04:32→09:47)
[2019-03-04 06:22] VITALS: BP 116/69
--- NOTE | 2019-03-04 06:36 | RO ---
DATE OF PROCEDURE: 03/03/2019 PREOPERATIVE DIAGNOSIS: Inability to augment labor, persistent category II heart rate tracing. POSTOPERATIVE DIAGNOSIS: Inability to augment labor, persistent category II heart rate tracing. PROCEDURE PERFORMED: Primary lower transverse section. SURGEON: Yelena Dove MD FIRER WATERTENDER: Khalida Kendrick CNM ANESTHESIA: Epidural. ESTIMATED BLOOD LOSS: 800 mL. INTRAVENOUS FLUIDS: 1100 mL of lactated Ringer solution. URINE OUTPUT: 150 mL. PREOPERATIVE ANTIBIOTICS: 2 grams of Ancef, 500 mg of azithromycin. SPECIMEN: Cord gases which were for 7.25/7.22, base excesses of -3.8/-6.3 respectively. OPERATIVE FINDINGS: Live born female , Apgars 8 and 9, weight was 3570 grams or 7 pounds 14 ounces. DESCRIPTION OF OPERATION: After informed consent was obtained and written consent was reviewed, the patient was brought to operating room where she was prepped and draped in a normal sterile fashion. She previously had a Buchanan catheter that was placed and set to gravity. A time out in the operating room was then performed identifying the patient, the procedure be performed as well as drug allergies. Anesthesia was tested and deemed to be adequate. A Pfannenstiel skin incision was then made and this was carried down to the underlying rectus fascia. The fascia was scored and this incision was extended bilaterally. The fascia was then dissected off the underlying rectus muscles both superiorly and inferiorly. The rectus muscles were in the midline. The peritoneum was then entered. Mobius retractor was then placed. Next, the vesicouterine peritoneum was tented and excised to create a bladder flap. A curvilinear incision was then made in the lower uterine segment and this incision was extended manually. The head was brought to the level of the incision atraumatically and delivered along with shoulders and corpus. Cord was clamped times two and was cut and was taken over to the warmer with a good cry where Dr. Garvin, community marketing coordinator, awaited. Cord gases were then obtained. Placenta was then delivered grossly intact. The uterus was then cleared of all clots and debris. The uterine incision was then closed in two layers using #0 Vicryl, first in a running locking fashion followed by second layer for imbrication in a running nonlocking fashion. A [id number] stitch was placed for hemostasis. The abdomen was then suctioned and the surgical sites were reinspected and noted be hemostatic. The Mobius retractor was then removed. The anterior peritoneum was then reapproximated with #3-0 Vicryl. The rectus muscles were reapproximated with #3-0 Vicryl. The fascia was then closed with #0 Vicryl in a running nonlocking fashion. The subcutaneous tissue was then irrigated and suctioned. The subcutaneous tissue was reapproximated with #3-0 Vicryl. Several subdermal stitches were placed with #3-0 Vicryl. The skin was closed with #4-0 Monocryl in a subcuticular fashion. The incision was then cleaned and dried and was dressed. The patient was then taken to recovery in stable condition. Counts were correct. Khalida Kendrick, my rn medical surgical, played an essential role during surgery. She assisted with tissue identification, retraction, delivery of the , as well as wound closure. Mother decided to name her daughter Saumya Greenwood. TONE
[2019-03-04 06:54] LABS: HEMATOCRIT 25.2 % (36.0-47.0); MEAN CORPUSCULAR HEMOGLOBIN 27.2 pg (27.0-33.0); MEAN CORPUSCULAR HGB CONC 32.9 g/dl (32.0-36.5); MEAN CORPUSCULAR VOLUME 82.6 fl (80.0-96.0); PLATELET COUNT, AUTOMATED 259 10^3/uL (150-450); RED BLOOD COUNT 3.05 10^6/uL (4.00-5.40); WHITE BLOOD COUNT 9.7 10^3/uL (4.0-10.0)
[2019-03-04 06:56] LABS: HEMOGLOBIN 8.3 g/dl (12.0-15.5)
--- NOTE | 2019-03-04 07:04 | IPNPDOC ---
Text Note Date of Service The patient was seen on 03/04/19. NOTE Postop Day 1 s/p primary LTCS; uncomplicated S: Pain well controlled, lochia and bleeding decreasing, has not voided yet, ambulating without assistance, not tolerating regular diet yet but will be ordering breakfast.Formula feeding. O: vitals stable Heart: RRR, no murmurs Lungs: CTA bilaterally Abd: Fundus firm at U, dressing dry and intact Ext: no edema, nontender bilaterally, Tristen's sign negative bilaterally A/P: 42 yo G1 now P1. /postop day 1 s/p primary LTCS. Hemodynamically stable, afebrile, good pain control. Recovering well. -Routine postoperative care and advancement. -Anticipate discharge tomorrow VS,Mike, I+O VS, Mike, I+O Laboratory Tests 03/04/19 06:36 Red Blood Count 3.05 L, Mean Corpuscular Volume 82.6, Mean Corpuscular Hemoglobin 27.2, Mean Corpuscular Hemoglobin Concent 32.9, Red Cell Distribution Width 14.2 Vital Signs Date Time Temp Pulse Resp B/P (MAP) Pulse Ox O2 Delivery O2 Flow Rate FiO2 03/04/19 06:22 98.6 79 18 116/69 (85) 95 I&O- Last 24 Hours up to 6 AM 03/04/19 06:00 Intake Total 2045 ml Output Total 4625 ml Balance -2580 ml GME ATTESTATION GME ATTESTATION My faculty preceptor for this patient encounter was physically present during the encounter and was fully available. All aspects of the patient interview, examination, medical decision making process, and medical care plan development were reviewed and approved by the faculty preceptor. The faculty preceptor is aware and concurs with the plan as stated in the body of this note and will attest to such by his/her cosignature. WINNIE LAYTON DO Mar 04, 2019 07:04
[2019-03-04] MEDS: DOCUSATE SODIUM 100 MG CAP PO SCH ×2 (09:46→19:26)
[2019-03-04] MEDS: PRENATAL VITAMINS CHEWABLE TABLET PO SCH (09:46)
[2019-03-04 10:00] VITALS: BP 106/56
[2019-03-04 14:00] VITALS: BP 108/58
[2019-03-04] MEDS: PERCOCET 5MG/325MG TAB PO PRN ×2 (15:59→21:44)
[2019-03-04 18:00] VITALS: BP 125/71
[2019-03-04] MEDS: IBUPROFEN 800 MG TAB PO SCH (19:26)
[2019-03-05] MEDS: IBUPROFEN 800 MG TAB PO SCH ×2 (01:28→09:49)
[2019-03-05 06:01] VITALS: BP 125/67
[2019-03-05] MEDS: PERCOCET 5MG/325MG TAB PO PRN (06:12)
[2019-03-05] MEDS ORDERED: PERCOCET PO (06:49)
[2019-03-05] MEDS ORDERED: PERC7.5T11 PO (06:53)
[2019-03-05] MEDS ORDERED: IBUP80TA PO (06:55)
[2019-03-05] MEDS: PRENATAL VITAMINS CHEWABLE TABLET PO SCH (08:27)
[2019-03-05] MEDS: DOCUSATE SODIUM 100 MG CAP PO SCH (08:27)
[2019-03-05] MEDS ORDERED: ADACEL/BOOSTRIX VACCINE (DIPHTH/PERTUSS/ACELL/TETANUS)0.5ML SYR (90715) IM ONE (09:00)
--- NOTE | 2019-03-06 08:48 | DSES ---
DATE OF ADMISSION: 03/02/2019 DATE OF DISCHARGE: 03/05/2019 DISCHARGE DIAGNOSIS: Primary low transverse section. PROCEDURES PERFORMED WHILE IN HOSPITAL: 1. Primary low transverse section. 2. Spinal anesthesia. HISTORY OF PRESENT ILLNESS: Ms. Street is a 42-year-old, (G) 1 now para (P) 1, who presented to labor and delivery on 03/02/2019 for induction of labor secondary to type 2 diabetes with nonreassuring testing (decreased variability and late deceleration). Due to persistent category II heart tracing and inability to augment labor, she underwent an uncomplicated primary low transverse section on 03/03/2019, which was productive of a liveborn female , scores 8 and 9. Weight was 3570 grams or 7 pounds 14 ounces. Estimated blood loss was 800 mL. Ms. Street did well postoperatively and by postoperative day #2 had met all discharge criteria. She was discharged home in stable condition. PHYSICAL EXAMINATION: On day of discharge, her vital signs are stable. She is afebrile. General appearance: Well-appearing, no acute distress. Abdomen: Soft, appropriately tender. Fundus firm below the umbilicus. Incision: Dressing is dry and intact. Extremities: Negative for calf tenderness. DISCHARGE INSTRUCTIONS: 1. Instructed to remain on pelvic rest for 6 weeks. 2. To remove her dressing in 5-7 days. 3. To report severe pain, heavy vaginal bleeding, fever, or incisional issues. DISCHARGE MEDICATIONS: - ibuprofen - Percocet FOLLOWUP: 2 weeks at [facility] for incision check.
[2019-03-16] MEDS ORDERED: OXYC1TAB23 PO (14:53)
== END 2019-03-05 11:00 | disposition home or self-care (01) | DRG 540 ==
LOC: M LDI 13:35 → M OBS 03-03 18:00
PROVIDERS: ADMIT Specialist; ATTEND Obstetrics & Gynecology
PROC: 3E0P7GC Introduction of Other Therapeutic Substance into Female Reproductive, Via Natural or Artificial Opening (ICD-10-PCS; 2019-03-02)
PROC: 10D00Z1 Extraction of Products of Conception, Low, Open Approach (ICD-10-PCS; principal; 2019-03-03 14:48)
DX: O24.12 Pre-existing type 2 diabetes mellitus, in childbirth (principal); E11.9 Type 2 diabetes mellitus without complications; Z3A.38 38 weeks gestation of pregnancy; Z37.0 Single live birth; O76 Abnormality in fetal heart rate and rhythm complicating labor and delivery; Z79.4 Long term (current) use of insulin; O99.824 Streptococcus B carrier state complicating childbirth; O62.0 Primary inadequate contractions

== ENCOUNTER 2019-11-06 12:47 | Emergency (ER) | payer MEDICAID, OTHER ==
[~2019-11-06] VITALS: Ht 170.2 cm; Wt 100.2 kg
[~2019-11-06 12:47] MED LIST changes: +IBUP80TA PO; +OXYC1TAB23 PO; +PERC5TAB12 PO; +PERC7.5T11 PO; +PERCOCET PO
[2019-11-06 13:43] LABS: BASO # 0.1 10^3/uL (0.0-0.2); BASO % 0.8 % (0.0-1.0); EOS # 0.3 10^3/uL (0.0-0.5); EOS % 3.3 % (0.0-3.0); HEMATOCRIT 30.3 % (36.0-47.0); HEMOGLOBIN 9.3 g/dl (12.0-15.5); MEAN CORPUSCULAR HGB CONC 30.7 g/dl (32.0-36.5); MEAN CORPUSCULAR VOLUME 78.1 fl (80.0-96.0); MONO # 0.7 10^3/uL (0.0-0.8); MONO % 9.1 % (0.0-5.0); NEUTROPHILS # 4.6 10^3/uL (1.5-8.5); NEUTROPHILS % 60.5 % (36.0-66.0); PLATELET COUNT, AUTOMATED 388 10^3/uL (150-450); RED BLOOD COUNT 3.88 10^6/uL (4.00-5.40); WHITE BLOOD COUNT 7.6 10^3/uL (4.0-10.0)
[2019-11-06 14:01] LABS: ERYTHROCYTE SEDIMENTATION RATE 90 mm/hr (0-20)
[2019-11-06 14:03] LABS: INR 1.14; PROTHROMBIN TIME 14.3 SECONDS (11.8-14.0)
[2019-11-06 14:20] LABS: ALBUMIN 3.2 GM/DL (3.2-5.2); ALT/SGPT 21 U/L (12-78); BILIRUBIN,TOTAL 0.3 MG/DL (0.2-1.0); BLOOD UREA NITROGEN 9 MG/DL (7-18); C REACTIVE PROTEIN QUANTITATIV 3.71 MG/DL (0.00-0.30); CALCIUM LEVEL 8.3 MG/DL (8.5-10.1); CARBON DIOXIDE LEVEL 24 MEQ/L (21-32); CHLORIDE LEVEL 105 MEQ/L (98-107); CREATININE FOR GFR 0.67 MG/DL (0.55-1.30); FREE T4 1.06 NG/DL (0.76-1.46); GLOMERULAR FILTRATION RATE > 60.0 (>58); GLUCOSE, FASTING 107 MG/DL (70-100); SODIUM LEVEL 135 MEQ/L (136-145); THYROID STIMULATING HORMONE 0.578 uIU/ML (0.358-3.740); TOTAL PROTEIN 8.6 GM/DL (6.4-8.2)
--- NOTE | 2019-11-06 14:36 | REP ---
Clinical: .Right lower extremity pain and swelling. Technique: Frederick scale and color Doppler evaluation of the right lower extremity using linear high frequency transducer. Findings: Ultrasound examination of the right lower extremity deep venous structures from the common femoral vein to the popliteal vein demonstrates normal compressibility flow and wave patterns in response to respiration and augmentation. There is no evidence for deep venous thrombosis. Impression: No evidence for deep venous thrombosis right lower extremity. Electronically Signed by Christopher Lopez MD 11/06/2019 02:27 P
[2019-11-06 14:59] VITALS: BP 121/71
== END 2019-11-06 15:03 | disposition home or self-care (01) ==
LOC: M ED 12:47
DX: O99.011 Anemia complicating pregnancy, first trimester (principal); O26.891 Other specified pregnancy related conditions, first trimester; M25.50 Pain in unspecified joint; R70.0 Elevated erythrocyte sedimentation rate; O24.111 Pre-existing type 2 diabetes mellitus, in pregnancy, first trimester; Z3A.08 8 weeks gestation of pregnancy; Z79.84 Long term (current) use of oral hypoglycemic drugs; Z88.2 Allergy status to sulfonamides

== ENCOUNTER 2019-11-22 22:21 | Emergency (ER) | payer MEDICAID ==
[~2019-11-22] VITALS: Ht 167.6 cm; Wt 100.0 kg
[2019-11-22 23:28] LABS: HEMATOCRIT 31.5 % (36.0-47.0); HEMOGLOBIN 9.8 g/dl (12.0-15.5); MEAN CORPUSCULAR HEMOGLOBIN 24.4 pg (27.0-33.0); MEAN CORPUSCULAR HGB CONC 31.1 g/dl (32.0-36.5); MEAN CORPUSCULAR VOLUME 78.4 fl (80.0-96.0); PLATELET COUNT, AUTOMATED 432 10^3/uL (150-450); RED BLOOD COUNT 4.02 10^6/uL (4.00-5.40)
[2019-11-23 02:04] VITALS: BP 111/80
--- NOTE | 2019-11-23 10:47 | REP ---
REASON: Vaginal bleeding. Preliminary report given by [employer] at the time the exam was performed. The uterus measures 9.8 x 5.2 x 6.8 cm. Within the uterus, there is an anechoic structure with increased echoes surrounding it consistent with a decidual reaction. Within the gestational sac, there is echogenic material consistent with a pole. The mean crown-rump length measurement of which is consistent with a 8-ptrz-9-day gestational age. Doppler interrogation of the pole shows no cardiac activity. The pole is morphologically irregular and the yolk sac seen is enlarged. The maternal adnexal masses show no abnormalities. IMPRESSION: Early OB ultrasound as described above with a morphologically abnormal appearing pole and an increased size in the yolk sac along with no cardiac activity. Finding is consistent with demise, however, followup is suggested. Electronically Signed by Rupert Keating DO 11/23/2019 12:06 P
== END 2019-11-23 02:06 | disposition home or self-care (01) ==
LOC: M ED 22:21
DX: O20.0 Threatened abortion (principal); Z3A.00 Weeks of gestation of pregnancy not specified

== ENCOUNTER → 2019-11-29 | Outpatient (CLI) | payer MEDICAID ==
[2019-11-29 17:47] LABS: HEMATOCRIT 24.5 % (36.0-47.0); HEMOGLOBIN 7.4 g/dl (12.0-15.5); MEAN CORPUSCULAR HGB CONC 30.2 g/dl (32.0-36.5); MEAN CORPUSCULAR VOLUME 79.5 fl (80.0-96.0); PLATELET COUNT, AUTOMATED 393 10^3/uL (150-450); RED BLOOD COUNT 3.08 10^6/uL (4.00-5.40); WHITE BLOOD COUNT 7.8 10^3/uL (4.0-10.0)
== END ==
LOC: M PLALAB 14:35
PROVIDERS: ATTEND Obstetrics & Gynecology
DX: D64.9 Anemia, unspecified (principal)

== ENCOUNTER 2020-02-11 14:13 | Emergency (ER) | payer MEDICAID, OTHER ==
[~2020-02-11] VITALS: Ht 175.3 cm; Wt 99.1 kg
[2020-02-11 14:13] VITALS: BP 135/85
[2020-02-11] MEDS ORDERED: IBUP200T45 PO (14:51)
[2020-02-11] MEDS ORDERED: METF500T13 PO (14:51)
[2020-02-11] MEDS ORDERED: FERR325T18 PO (14:51)
[2020-02-11] MEDS ORDERED: INDO50CA91 PO (14:59)
== END 2020-02-11 15:09 | disposition home or self-care (01) ==
LOC: M ED 14:13
DX: M79.89 Other specified soft tissue disorders (principal); E11.9 Type 2 diabetes mellitus without complications; Z79.899 Other long term (current) drug therapy; Z79.84 Long term (current) use of oral hypoglycemic drugs; Z88.2 Allergy status to sulfonamides

== ENCOUNTER → 2020-07-21 | Outpatient (REF) | payer OTHER, MEDICAID ==
[~2020-07-21] MED LIST changes: +FERR325T18 PO; +IBUP200T45 PO; +INDO50CA91 PO
[2020-07-21 16:13] LABS: BASO # 0.1 10^3/uL (0.0-0.2); BASO % 0.6 % (0.0-1.0); EOS # 0.4 10^3/uL (0.0-0.5); EOS % 4.4 % (0.0-3.0); HEMATOCRIT 30.6 % (36.0-47.0); LYMPH # 2.6 10^3/uL (1.5-5.0); LYMPH % 31.9 % (24.0-44.0); MEAN CORPUSCULAR HEMOGLOBIN 22.3 pg (27.0-33.0); MEAN CORPUSCULAR HGB CONC 29.4 g/dl (32.0-36.5); MEAN CORPUSCULAR VOLUME 75.7 fl (80.0-96.0); MONO # 0.8 10^3/uL (0.0-0.8); MONO % 9.2 % (0.0-5.0); NEUTROPHILS # 4.4 10^3/uL (1.5-8.5); NEUTROPHILS % 53.7 % (36.0-66.0); PLATELET COUNT, AUTOMATED 405 10^3/uL (150-450); RED BLOOD COUNT 4.04 10^6/uL (4.00-5.40); WHITE BLOOD COUNT 8.1 10^3/uL (4.0-10.0)
[2020-07-21 16:27] LABS: HEMOGLOBIN A1c 6.4 %
[2020-07-21 16:38] LABS: ALBUMIN 3.4 GM/DL (3.2-5.2); ALT/SGPT 11 U/L (12-78); BILIRUBIN,TOTAL 0.3 MG/DL (0.2-1.0); BLOOD UREA NITROGEN 17 MG/DL (7-18); CARBON DIOXIDE LEVEL 25 MEQ/L (21-32); CHLORIDE LEVEL 105 MEQ/L (98-107); CREATININE FOR GFR 0.81 MG/DL (0.55-1.30); FERRITIN 20 NG/ML (8-252); GLOMERULAR FILTRATION RATE > 60.0 (>58); GLUCOSE, FASTING 116 MG/DL (70-100); IRON (FE) 39 UG/DL (50-170); PERCENT SATURATION 12.6 % (13.2-45.0); POTASSIUM SERUM 4.5 MEQ/L (3.5-5.1); SODIUM LEVEL 137 MEQ/L (136-145); TOTAL IRON BINDING CAPACITY 310 UG/DL (250-450); TOTAL PROTEIN 8.6 GM/DL (6.4-8.2)
[2020-07-21 16:44] LABS: MAU/CREAT RATIO 41.3 MCG/MG (0.0-30.0)
== END ==
LOC: M LAB REF 15:50
PROVIDERS: ATTEND Physician Assistant
DX: E11.9 Type 2 diabetes mellitus without complications (principal); D50.8 Other iron deficiency anemias

== ENCOUNTER → 2021-02-14 | Outpatient (CLI) | payer OTHER ==
[~2021-02-14] MED LIST changes: +DOXY100C3 PO
[2021-02-14 17:15] LABS: BASO # 0.1 10^3/uL (0.0-0.2); BASO % 0.7 % (0.0-1.0); EOS # 0.2 10^3/uL (0.0-0.5); HEMATOCRIT 29.9 % (36.0-47.0); HEMOGLOBIN 8.7 g/dl (12.0-15.5); LYMPH # 2.6 10^3/uL (1.5-5.0); LYMPH % 34.9 % (24.0-44.0); MEAN CORPUSCULAR HEMOGLOBIN 21.6 pg (27.0-33.0); MEAN CORPUSCULAR HGB CONC 29.1 g/dl (32.0-36.5); MEAN CORPUSCULAR VOLUME 74.2 fl (80.0-96.0); MONO # 0.7 10^3/uL (0.0-0.8); MONO % 9.3 % (2.0-8.0); NEUTROPHILS # 3.8 10^3/uL (1.5-8.5); NEUTROPHILS % 51.8 % (36.0-66.0); PLATELET COUNT, AUTOMATED 445 10^3/uL (150-450); RED BLOOD COUNT 4.03 10^6/uL (4.00-5.40); WHITE BLOOD COUNT 7.3 10^3/uL (4.0-10.0)
[2021-02-14 17:29] LABS: ALBUMIN 3.2 GM/DL (3.2-5.2); ALT/SGPT 16 U/L (12-78); BILIRUBIN,TOTAL 0.1 MG/DL (0.2-1.0); BLOOD UREA NITROGEN 16 MG/DL (7-18); CALCIUM LEVEL 8.7 MG/DL (8.5-10.1); CARBON DIOXIDE LEVEL 27 MEQ/L (21-32); CHLORIDE LEVEL 108 MEQ/L (98-107); CREATININE FOR GFR 0.86 MG/DL (0.55-1.30); FERRITIN 20 NG/ML (8-252); GLOMERULAR FILTRATION RATE > 60.0 (>58); GLUCOSE, FASTING 103 MG/DL (70-100); IRON (FE) 18 UG/DL (50-170); LDH LACTATE DEHYDROGENASE 96 U/L (84-246); PERCENT SATURATION 7.7 % (13.2-45.0); POTASSIUM SERUM 5.1 MEQ/L (3.5-5.1); SODIUM LEVEL 137 MEQ/L (136-145); TOTAL IRON BINDING CAPACITY 235 UG/DL (250-450); TOTAL PROTEIN 8.7 GM/DL (6.4-8.2)
[2021-02-15 10:25] LABS: ALBUMIN 3.76 GM/DL (3.29-5.55); ALBUMIN % 43.2 % (55.8-66.1)
[2021-02-15 10:26] LABS: ALPHA-1-GLOBULIN % 5.1 % (2.9-4.9); ALPHA-1-GLOBULINS 0.44 GM/DL (0.17-0.41); ALPHA-2-GLOBULINS 0.82 GM/DL (0.42-0.99); ALPHA-2-GLOBULINS % 9.4 % (7.1-11.8); BETA-1-GLOBULINS 0.44 GM/DL (0.28-0.60); BETA-1-GLOBULINS % 5.1 % (4.7-7.2); BETA-2-GLOBULINS 0.62 GM/DL (0.19-0.55); BETA-2-GLOBULINS % 7.1 % (3.2-6.5); GAMMA GLOBULIN % 30.1 % (11.1-18.8); GAMMA GLOBULINS 2.62 GM/DL (0.65-1.58)
== END ==
LOC: M PLALAB 14:32
PROVIDERS: ATTEND Internal Medicine Medical Oncology
DX: D50.9 Iron deficiency anemia, unspecified (principal)

== ENCOUNTER → 2021-02-23 | Outpatient (CLI) | payer OTHER | LOC: M PLALAB 10:24 | PROVIDERS: ATTEND Specialist | DX: N92.6 Irregular menstruation, unspecified (principal) ==

== ENCOUNTER → 2021-04-23 | Outpatient (REF) | payer OTHER, MEDICAID ==
[~2021-04-23] MED LIST changes: -IBUP200T45 PO; +IBUP200T46 PO
== END ==
LOC: M SFHCRHEU 10:16
PROVIDERS: ATTEND Internal Medicine
DX: R70.0 Elevated erythrocyte sedimentation rate (principal)

== ENCOUNTER → 2021-05-14 | Outpatient (CLI) | payer OTHER, MEDICAID ==
--- NOTE | 2021-05-14 11:20 | REP ---
INDICATION: OSTEOARTHRITIS OF HAND, UNSPECIFIED LATERALITY/TYPE COMPARISON: None. TECHNIQUE: AP, lateral, bilateral oblique views right and left hand. FINDINGS: Osseous structures, joint spaces, and surrounding soft tissues of the hands are essentially age-appropriate and without significant overt osteoarthritic or inflammatory arthritic changes. Bilateral wrists suggest subchondral cystic changes along with cortical irregularity and joint space narrowing primarily involving the 1st and 2nd carpometacarpal joints suggesting mild arthritic changes (left greater than right). IMPRESSION: 1. Mild arthritic changes to the wrists (left greater than right). 2. Otherwise symmetric age-appropriate examination to the right and left hand. <Electronically signed by Christopher Lopez > 05/14/21 [id number]
--- NOTE | 2021-05-14 11:23 | REP ---
INDICATION: PAIN OF WRIST, UNSPECIFIED LATERALITY COMPARISON: None. TECHNIQUE: AP, lateral, bilateral oblique views right and left wrist. FINDINGS: Right wrist is essentially age-appropriate. Very minimal subchondral sclerosis and subtle joint space narrowing involving the 1st and 2nd carpometacarpal joint cannot be excluded. The left wrist demonstrates bradshaw carpal heterogeneity suggesting elements of subchondral cystic change as well as periarticular sclerosis and cortical irregularity at the 1st and 2nd carpometacarpal joints. The examination appears to be limited due to positioning and elements of chronic dislocation along the carpometacarpal joints cannot be excluded or properly evaluated based on current examination. IMPRESSION: 1. Minimal presumed age-related changes to the right wrist. 2. Poor evaluation of the left wrist due to positioning and or chronic dislocation through the carpometacarpal joints. Correlation with history is recommended and if necessary CT of the left wrist should be considered for further, more detailed evaluation. <Electronically signed by Christopher Lopez > 05/14/21 [id number]
--- NOTE | 2021-05-14 11:25 | REP ---
INDICATION: OSTEOARTHRITIS OF KNEE, UNSPECIFIED LATERALITY/TYPE COMPARISON: None. TECHNIQUE: AP, lateral, bilateral oblique and sunrise views right and left knee. FINDINGS: Moderate/early-advanced tricompartmental osteoarthritic degenerative changes are noted bilaterally and relatively symmetric. Findings include subchondral sclerosis, elements of joint space narrowing, osteophytosis, and minimal chondrocalcinosis. Small elements of joint effusion cannot be excluded bilaterally. There is no evidence for acute or obvious healed fracture. IMPRESSION: Relatively symmetric moderate/early advanced tricompartmental osteoarthritic degenerative changes. <Electronically signed by Christopher Lopez > 05/14/21 [id number]
--- NOTE | 2021-05-14 11:29 | REP ---
INDICATION: PAIN OF FOOT, UNSPECIFIED LATERALITY COMPARISON: None. TECHNIQUE: AP, lateral, bilateral oblique views right and left foot. FINDINGS: There is evidence for bilateral brachymetatarsia involving the 4th toes. There is relatively symmetric moderate bilateral hallux valgus deformity with subchondral sclerosis. Remainder of the examination is relatively age-appropriate bilaterally. IMPRESSION: 1. 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 2. Bilateral moderate hallux valgus deformity. <Electronically signed by Christopher Lopez > 05/14/21 [id number]
== END ==
LOC: M ADAMS 09:27
PROVIDERS: ATTEND Internal Medicine
DX: M19.049 Primary osteoarthritis, unspecified hand (principal); M17.10 Unilateral primary osteoarthritis, unspecified knee; M79.673 Pain in unspecified foot; M25.539 Pain in unspecified wrist

== ENCOUNTER → 2021-05-28 | Outpatient (REF) | payer OTHER, MEDICAID ==
[2021-05-28 18:32] LABS: MAGNESIUM LEVEL 1.7 MG/DL (1.8-2.4); PHOSPHORUS LEVEL 3.3 MG/DL (2.5-4.9); PTH INTACT 11.9 PG/ML (18.5-88.0); THYROID STIMULATING HORMONE 0.997 uIU/ML (0.358-3.740)
== END ==
LOC: M SFHCRHEU 11:22
PROVIDERS: ATTEND Internal Medicine
DX: M11.20 Other chondrocalcinosis, unspecified site (principal)

== ENCOUNTER → 2021-12-13 | Outpatient (CLI) | payer OTHER ==
[~2021-12-13] MED LIST changes: +NAPR-885
[2021-12-13 14:13] LABS: IMMUNOGLOBULIN M 39.7 MG/DL (40-230)
[2021-12-13 23:20] LABS: FOLATE 12.9 NG/ML
[2021-12-15 16:08] LABS: FREE KAPPA LIGHT CHAINS SERUM 83.3 mg/L (3.3-19.4); FREE LAMBDA LIGHT CHAINS SERUM 52.4 mg/L (5.7-26.3); KAPPA/LAMBDA RATIO SERUM 1.59 (0.26-1.65); SOLUBLE TRANSFERRIN RECEPTOR 19.6 nmol/L (12.2-27.3)
== END ==
LOC: M PLALAB 09:38
PROVIDERS: ATTEND Internal Medicine Medical Oncology
DX: D50.9 Iron deficiency anemia, unspecified (principal)

== ENCOUNTER → 2021-12-17 | Outpatient (REF) | payer OTHER | LOC: M LAB REF 14:58 | PROVIDERS: ATTEND Internal Medicine Medical Oncology | DX: D50.9 Iron deficiency anemia, unspecified (principal) ==

== ENCOUNTER → 2022-01-17 | Outpatient (REF) | payer OTHER, MEDICAID ==
[2022-01-17 12:55] LABS: CALCIUM LEVEL 9.4 MG/DL (8.5-10.1); MAGNESIUM LEVEL 1.7 MG/DL (1.8-2.4)
[2022-01-17 13:27] LABS: TOTAL 25(OH) VITAMIN D 23.1 NG/ML (30.0-100.0)
[2022-01-17 13:28] LABS: PTH INTACT 19.3 PG/ML (18.5-88.0)
== END ==
LOC: M SFHCRHEU 11:06
PROVIDERS: ATTEND Internal Medicine
DX: R79.89 Other specified abnormal findings of blood chemistry (principal); E61.1 Iron deficiency; R79.0 Abnormal level of blood mineral

== ENCOUNTER → 2022-02-28 | Outpatient (CLI) | payer OTHER | LOC: M PLAIMG 06:47 | PROVIDERS: ATTEND Internal Medicine | DX: M25.462 Effusion, left knee (principal); M17.12 Unilateral primary osteoarthritis, left knee ==

== ENCOUNTER → 2022-04-18 | Outpatient (CLI) | payer OTHER | LOC: M WHC 07:09 | PROVIDERS: ATTEND Physician Assistant | DX: Z12.31 Encounter for screening mammogram for malignant neoplasm of breast (principal) ==

== ENCOUNTER → 2022-06-03 | Outpatient (REF) | payer OTHER ==
[2022-06-03 19:10] LABS: HEMOGLOBIN A1c 6.5 % (4.0-6.0)
== END ==
LOC: M LAB REF 16:12
PROVIDERS: ATTEND Physician Assistant
DX: E11.9 Type 2 diabetes mellitus without complications (principal)

== ENCOUNTER → 2022-08-29 | Outpatient (CLI) | payer OTHER ==
[~2022-08-29] MED LIST changes: -NAPR-885; +NAPR-885 PO
== END ==
LOC: M EKG 14:48
PROVIDERS: ATTEND Internal Medicine Medical Oncology
DX: D50.9 Iron deficiency anemia, unspecified (principal); D89.0 Polyclonal hypergammaglobulinemia

== ENCOUNTER → 2022-09-02 | Outpatient (REF) | payer OTHER ==
[2022-09-02 13:28] LABS: MAGNESIUM LEVEL 1.5 MG/DL (1.8-2.4)
[2022-09-02 13:31] LABS: TOTAL 25(OH) VITAMIN D 46.1 NG/ML (20.0-100.0)
== END ==
LOC: M SFHCRHEU 07:48
PROVIDERS: ATTEND Internal Medicine
DX: R79.0 Abnormal level of blood mineral (principal); E55.9 Vitamin D deficiency, unspecified

== ENCOUNTER → 2022-09-04 | Outpatient (CLI) | payer MEDICAID, OTHER | LOC: M LABSMTC 08:37 | PROVIDERS: ATTEND Anesthesiology | DX: Z01.818 Encounter for other preprocedural examination (principal); Z11.52 Encounter for screening for COVID-19 ==

== ENCOUNTER 2022-09-09 06:54 | Day surgery (SDC) | payer OTHER ==
[~2022-09-09] VITALS: Ht 175.3 cm; Wt 107.0 kg
[~2022-09-09 06:54] MED LIST changes: +NS 1,000 ML IV ONE
[2022-09-09] MEDS ORDERED: fentaNYL 100 MCG/2 ML INJECTION As Ordered ONE (07:25)
[2022-09-09] MEDS ORDERED: LIDOCAINE 2% 100MG/5ML SDV (FOR ANES.) As Ordered ONE (07:25)
[2022-09-09] MEDS ORDERED: propofoL 500 MG/50 ML VIAL As Ordered ONE ×2 (07:25→08:29)
[2022-09-09 09:08] VITALS: BP 126/74
== END 2022-09-09 09:10 | disposition home or self-care (01) ==
LOC: M OPP 06:54
PROVIDERS: ATTEND Internal Medicine Gastroenterology
DX: K64.4 Residual hemorrhoidal skin tags (principal); K64.8 Other hemorrhoids; D50.9 Iron deficiency anemia, unspecified; K29.70 Gastritis, unspecified, without bleeding; E11.9 Type 2 diabetes mellitus without complications; Z79.1 Long term (current) use of non-steroidal anti-inflammatories (NSAID); Z79.84 Long term (current) use of oral hypoglycemic drugs; Z88.2 Allergy status to sulfonamides; Z80.0 Family history of malignant neoplasm of digestive organs
CPT/HCPCS: 43239; 45378; 88305; J3010

== ENCOUNTER 2022-12-24 18:02 | Emergency (ER) | payer OTHER ==
[~2022-12-24] VITALS: Ht 170.2 cm; Wt 111.4 kg
[~2022-12-24 18:02] MED LIST changes: -NS 1,000 ML IV ONE; +OMEP40CA4 PO
[2022-12-24] MEDS ORDERED: OMEP40CA4 PO (18:09)
[2022-12-24] MEDS ORDERED: traMADol 50 MG TAB PO ONE (20:15)
[2022-12-24] MEDS ORDERED: ACETAMINOPHEN TAB 650MG DOSE (2X325MG) PO ONE (20:15)
[2022-12-24 20:57] LABS: BASO % 0.6 % (0.0-1.0); EOS # 0.4 10^3/uL (0.0-0.5); EOS % 4.8 % (0.0-3.0); HEMATOCRIT 29.9 % (36.0-47.0); HEMOGLOBIN 9.3 g/dl (12.0-15.5); LYMPH # 2.3 10^3/uL (1.5-5.0); LYMPH % 31.9 % (24.0-44.0); MEAN CORPUSCULAR HGB CONC 31.1 g/dl (32.0-36.5); MEAN CORPUSCULAR VOLUME 80.4 fl (80.0-96.0); MONO # 0.7 10^3/uL (0.0-0.8); MONO % 9.4 % (2.0-8.0); NEUTROPHILS # 3.9 10^3/uL (1.5-8.5); NEUTROPHILS % 53.2 % (36.0-66.0); PLATELET COUNT, AUTOMATED 413 10^3/uL (150-450); RED BLOOD COUNT 3.72 10^6/uL (4.00-5.40); WHITE BLOOD COUNT 7.3 10^3/uL (4.0-10.0)
[2022-12-24 21:00] LABS: ERYTHROCYTE SEDIMENTATION RATE 92 mm/hr (0-20)
[2022-12-24] MEDS ORDERED: INDO50CA91 PO (21:08)
[2022-12-24 21:19] LABS: URIC ACID 6.8 MG/DL (3.1-7.8)
[2022-12-24 22:07] LABS: BLOOD UREA NITROGEN 15 MG/DL (9-23); CALCIUM LEVEL 8.3 MG/DL (8.5-10.1); CARBON DIOXIDE LEVEL 25 MMOL/L (20-31); CHLORIDE LEVEL 107 MMOL/L (98-107); CREATININE FOR GFR 0.65 MG/DL (0.55-1.30); GLOMERULAR FILTRATION RATE > 60.0 (>58); GLUCOSE, FASTING 125 MG/DL (60-100); POTASSIUM SERUM 4.2 MMOL/L (3.5-5.1); SODIUM LEVEL 138 MMOL/L (136-145)
[2022-12-24 22:21] VITALS: BP 141/86; TEMP 97.1; O2SAT 100
== END 2022-12-24 22:36 | disposition home or self-care (01) ==
LOC: M ED 18:02
DX: M19.041 Primary osteoarthritis, right hand (principal); M79.641 Pain in right hand; K21.9 Gastro-esophageal reflux disease without esophagitis; E11.9 Type 2 diabetes mellitus without complications; Z88.2 Allergy status to sulfonamides; Z79.4 Long term (current) use of insulin; Z79.899 Other long term (current) drug therapy

== ENCOUNTER → 2022-12-26 | Outpatient (CLI) | payer OTHER ==
[2022-12-26 15:15] LABS: C REACTIVE PROTEIN QUANTITATIV 8.9 MG/DL (<1.0)
== END ==
LOC: M PLALAB 10:11
PROVIDERS: ATTEND Physician Assistant
DX: M79.641 Pain in right hand (principal)

== ENCOUNTER 2023-01-04 14:55 | Emergency (ER) | payer OTHER ==
[~2023-01-04] VITALS: Ht 172.7 cm; Wt 103.9 kg
[2023-01-04] MEDS ORDERED: DOXY100C3 PO (15:28)
[2023-01-04] MEDS ORDERED: INDO50CA91 PO (17:13)
[2023-01-04] MEDS ORDERED: traMADol 50 MG TAB PO ONE (17:15)
[2023-01-04 17:23] VITALS: BP 136/69; TEMP 97.7; O2SAT 98
== END 2023-01-04 17:28 | disposition home or self-care (01) ==
LOC: M ED 14:55
DX: M19.011 Primary osteoarthritis, right shoulder (principal); F41.9 Anxiety disorder, unspecified; Z88.2 Allergy status to sulfonamides; Z79.899 Other long term (current) drug therapy

== ENCOUNTER → 2023-02-11 | Outpatient (CLI) | payer OTHER ==
[2023-02-11 17:45] LABS: HEMATOCRIT 33.7 % (36.0-47.0); HEMOGLOBIN 10.2 g/dl (12.0-15.5); MEAN CORPUSCULAR HEMOGLOBIN 25.1 pg (27.0-33.0); MEAN CORPUSCULAR HGB CONC 30.3 g/dl (32.0-36.5); MEAN CORPUSCULAR VOLUME 82.8 fl (80.0-96.0); PLATELET COUNT, AUTOMATED 466 10^3/uL (150-450); RED BLOOD COUNT 4.07 10^6/uL (4.00-5.40); WHITE BLOOD COUNT 7.4 10^3/uL (4.0-10.0)
[2023-02-11 17:58] LABS: ALBUMIN 3.5 G/DL (3.2-5.2); ALKALINE PHOSPHATASE 56 U/L (46-116); ALT/SGPT < 9 U/L (7.0-40); AST/SGOT < 8 U/L (<34); BILIRUBIN,TOTAL 0.3 MG/DL (0.3-1.2); BLOOD UREA NITROGEN 14 MG/DL (9-23); CARBON DIOXIDE LEVEL 25 MMOL/L (20-31); CHLORIDE LEVEL 106 MMOL/L (98-107); CHOLESTEROL LEVEL 134 MG/DL (<200); CHOLESTEROL RISK RATIO 4.71 (<5); CREATININE FOR GFR 0.77 MG/DL (0.55-1.30); GLOMERULAR FILTRATION RATE > 60.0 (>58); GLUCOSE, FASTING 102 MG/DL (60-100); HDL CHOLESTEROL 28.4 MG/DL (>40); LDL CHOLESTEROL 71.6 MG/DL (<100); NON-HDL-C 105.6 MG/DL; POTASSIUM SERUM 4.6 MMOL/L (3.5-5.1); SODIUM LEVEL 139 MMOL/L (136-145); TOTAL PROTEIN 8.1 G/DL (5.7-8.2); TRIGLYCERIDES LEVEL 170 MG/DL (<150)
[2023-02-11 17:59] LABS: RHEUMATOID FACTOR QUANT 6.2 IU/ML (<14)
[2023-02-11 18:00] LABS: THYROID STIMULATING HORMONE 0.655 uIU/ML (0.55-4.78); TOTAL 25(OH) VITAMIN D 26.8 NG/ML (20.0-100.0)
[2023-02-11 18:42] LABS: HEMOGLOBIN A1c 6.6 % (4.0-6.0)
== END ==
LOC: M PLALAB 15:25
PROVIDERS: ATTEND Family Medicine
DX: I10 Essential (primary) hypertension (principal); R53.83 Other fatigue; E03.9 Hypothyroidism, unspecified

== ENCOUNTER → 2023-02-25 | Outpatient (REF) | payer OTHER ==
[2023-02-25 17:27] LABS: MAGNESIUM LEVEL 1.4 MG/DL (1.8-2.4)
== END ==
LOC: M SFHCRHEU 11:43
PROVIDERS: ATTEND Internal Medicine
DX: M79.89 Other specified soft tissue disorders (principal); R79.0 Abnormal level of blood mineral; E55.9 Vitamin D deficiency, unspecified

== ENCOUNTER → 2023-04-18 | Outpatient (CLI) | payer OTHER | LOC: M PLAIMG 13:32 | PROVIDERS: ATTEND Internal Medicine | DX: M79.641 Pain in right hand (principal); M79.89 Other specified soft tissue disorders ==

== ENCOUNTER → 2023-08-20 | Outpatient (REF) | payer OTHER ==
[2023-08-20 16:34] LABS: HEMATOCRIT 38.5 % (36.0-47.0); HEMOGLOBIN 12.2 g/dl (12.0-15.5); MEAN CORPUSCULAR HEMOGLOBIN 27.7 pg (27.0-33.0); MEAN CORPUSCULAR HGB CONC 31.7 g/dl (32.0-36.5); MEAN CORPUSCULAR VOLUME 87.3 fl (80.0-96.0); PLATELET COUNT, AUTOMATED 388 10^3/uL (150-450); RED BLOOD COUNT 4.41 10^6/uL (4.00-5.40); WHITE BLOOD COUNT 8.2 10^3/uL (4.0-10.0)
[2023-08-20 17:05] LABS: IRON (FE) 44 UG/DL (50-170); TOTAL IRON BINDING CAPACITY 231 UG/DL (250-425)
[2023-08-20 17:07] LABS: FERRITIN 160.7 NG/ML (7.3-270.7)
[2023-08-20 17:13] LABS: ALBUMIN 3.6 G/DL (3.2-5.2); ALKALINE PHOSPHATASE 52 U/L (46-116); ALT/SGPT < 9 U/L (7.0-40); AST/SGOT < 8 U/L (<34); BILIRUBIN,TOTAL 0.4 MG/DL (0.3-1.2); BLOOD UREA NITROGEN 12 MG/DL (9-23); CALCIUM LEVEL 9.3 MG/DL (8.5-10.1); CARBON DIOXIDE LEVEL 28 MMOL/L (20-31); CHLORIDE LEVEL 102 MMOL/L (98-107); CHOLESTEROL LEVEL 138 MG/DL (<200); CHOLESTEROL RISK RATIO 4.48 (<5); CREATININE FOR GFR 0.72 MG/DL (0.55-1.30); GLOMERULAR FILTRATION RATE > 60.0 (>58); GLUCOSE, FASTING 106 MG/DL (60-100); HDL CHOLESTEROL 30.8 MG/DL (>40); LDL CHOLESTEROL 77.8 MG/DL (<100); NON-HDL-C 107.2 MG/DL; POTASSIUM SERUM 4.3 MMOL/L (3.5-5.1); SODIUM LEVEL 137 MMOL/L (136-145); TOTAL PROTEIN 8.1 G/DL (5.7-8.2); TRIGLYCERIDES LEVEL 147 MG/DL (<150)
[2023-08-20 17:16] LABS: CREATININE, URINE 166.2 MG/DL
[2023-08-20 18:11] LABS: HEMOGLOBIN A1c 5.8 % (4.0-6.0)
== END ==
LOC: M LAB REF 16:12
PROVIDERS: ATTEND Physician Assistant
DX: E11.9 Type 2 diabetes mellitus without complications (principal); D50.8 Other iron deficiency anemias

== ENCOUNTER → 2023-11-13 | Outpatient (CLI) | payer OTHER | LOC: M PLAIMG 08:40 | PROVIDERS: ATTEND Internal Medicine | DX: M19.041 Primary osteoarthritis, right hand (principal) ==

== ENCOUNTER → 2023-11-21 | Outpatient (CLI) | payer OTHER | LOC: M WHC 08:21 | PROVIDERS: ATTEND Physician Assistant | DX: Z12.31 Encounter for screening mammogram for malignant neoplasm of breast (principal) ==

== ENCOUNTER → 2023-11-28 | Outpatient (REF) | payer OTHER ==
[2023-11-28 19:59] LABS: BASO # 0.1 10^3/uL (0.0-0.2); BASO % 0.8 % (0.0-1.0); EOS # 0.2 10^3/uL (0.0-0.5); HEMATOCRIT 34.7 % (36.0-47.0); HEMOGLOBIN 10.8 g/dl (12.0-15.5); LYMPH # 2.2 10^3/uL (1.5-5.0); LYMPH % 36.7 % (24.0-44.0); MEAN CORPUSCULAR HEMOGLOBIN 27.3 pg (27.0-33.0); MEAN CORPUSCULAR HGB CONC 31.1 g/dl (32.0-36.5); MEAN CORPUSCULAR VOLUME 87.8 fl (80.0-96.0); MONO # 0.6 10^3/uL (0.0-0.8); MONO % 9.2 % (2.0-8.0); NEUTROPHILS % 49.1 % (36.0-66.0); PLATELET COUNT, AUTOMATED 383 10^3/uL (150-450); RED BLOOD COUNT 3.95 10^6/uL (4.00-5.40); WHITE BLOOD COUNT 6.1 10^3/uL (4.0-10.0)
[2023-11-28 20:14] LABS: TOTAL 25(OH) VITAMIN D 37.6 NG/ML (20.0-100.0)
[2023-11-28 20:15] LABS: ALBUMIN 3.6 G/DL (3.2-5.2); ALKALINE PHOSPHATASE 55 U/L (46-116); ALT/SGPT < 9 U/L (7.0-40); AST/SGOT < 8 U/L (<34); BILIRUBIN,DIRECT < 0.1 MG/DL (<0.4); BILIRUBIN,TOTAL 0.2 MG/DL (0.3-1.2); BLOOD UREA NITROGEN 13 MG/DL (9-23); CALCIUM LEVEL 8.9 MG/DL (8.5-10.1); CARBON DIOXIDE LEVEL 28 MMOL/L (20-31); CHLORIDE LEVEL 105 MMOL/L (98-107); CREATININE FOR GFR 0.69 MG/DL (0.55-1.30); GLOMERULAR FILTRATION RATE > 60.0 (>58); GLUCOSE, FASTING 110 MG/DL (60-100); MAGNESIUM LEVEL 1.6 MG/DL (1.8-2.4); POTASSIUM SERUM 4.6 MMOL/L (3.5-5.1); SODIUM LEVEL 140 MMOL/L (136-145)
[2023-11-28 20:16] LABS: ERYTHROCYTE SEDIMENTATION RATE 55 mm/hr (0-20)
== END ==
LOC: M SFHCRHEU 12:04
PROVIDERS: ATTEND Internal Medicine
DX: E55.9 Vitamin D deficiency, unspecified (principal); R79.0 Abnormal level of blood mineral; M06.4 Inflammatory polyarthropathy; L73.2 Hidradenitis suppurativa

== ENCOUNTER → 2024-01-26 | Outpatient (REF) | payer OTHER | LOC: M SFHCDERM 09:29 | PROVIDERS: ATTEND Physician Assistant | DX: Z79.899 Other long term (current) drug therapy (principal) ==

== ENCOUNTER → 2024-02-10 | Outpatient (REF) | payer OTHER, MEDICAID ==
[2024-02-12 13:54] LABS: HPV APTIMA Not Detected (Not Detected)
== END ==
LOC: M LAB REF 17:30
PROVIDERS: ATTEND Physician Assistant
DX: Z12.4 Encounter for screening for malignant neoplasm of cervix (principal); Z11.3 Encounter for screening for infections with a predominantly sexual mode of transmission; B37.31 Acute candidiasis of vulva and vagina
CPT/HCPCS: 87624; G0123

== ENCOUNTER → 2024-03-03 | Outpatient (REF) | payer OTHER, MEDICAID | LOC: M LAB REF 16:34 | PROVIDERS: ATTEND Physician Assistant | DX: N30.01 Acute cystitis with hematuria (principal) ==

== ENCOUNTER → 2024-04-29 | Outpatient (REF) | payer OTHER, MEDICAID ==
[2024-04-29 19:18] LABS: HEMATOCRIT 34.3 % (36.0-47.0); HEMOGLOBIN 10.7 g/dl (12.0-15.5); MEAN CORPUSCULAR HEMOGLOBIN 27.3 pg (27.0-33.0); MEAN CORPUSCULAR HGB CONC 31.2 g/dl (32.0-36.5); MEAN CORPUSCULAR VOLUME 87.5 fl (80.0-96.0); PLATELET COUNT, AUTOMATED 350 10^3/uL (150-450); RED BLOOD COUNT 3.92 10^6/uL (4.00-5.40); WHITE BLOOD COUNT 6.6 10^3/uL (4.0-10.0)
[2024-04-29 19:57] LABS: ALBUMIN 3.5 G/DL (3.2-5.2); ALKALINE PHOSPHATASE 53 U/L (35-104); ALT/SGPT < 9 U/L (7.0-40); AST/SGOT < 8 U/L (<34); BILIRUBIN,TOTAL 0.4 MG/DL (0.3-1.2); BLOOD UREA NITROGEN 15 MG/DL (9-23); CALCIUM LEVEL 9.1 MG/DL (8.5-10.1); CARBON DIOXIDE LEVEL 25 MMOL/L (20-31); CHLORIDE LEVEL 107 MMOL/L (98-107); CHOLESTEROL LEVEL 139 MG/DL (<200); CHOLESTEROL RISK RATIO 4.52 (<5); GLOMERULAR FILTRATION RATE > 60.0 (>58); GLUCOSE, FASTING 109 MG/DL (60-100); HDL CHOLESTEROL 30.7 MG/DL (>40); LDL CHOLESTEROL 86.9 MG/DL (<100); NON-HDL-C 108.3 MG/DL; POTASSIUM SERUM 4.7 MMOL/L (3.5-5.1); SODIUM LEVEL 136 MMOL/L (136-145); TOTAL PROTEIN 8.4 G/DL (5.7-8.2); TRIGLYCERIDES LEVEL 107 MG/DL (<150)
[2024-04-29 20:25] LABS: HEMOGLOBIN A1c 6.1 % (4.0-6.0)
== END ==
LOC: M LAB REF 16:51
PROVIDERS: ATTEND Physician Assistant
DX: E11.9 Type 2 diabetes mellitus without complications (principal)

== ENCOUNTER 2024-06-14 08:51 | Emergency (ER) | payer OTHER ==
[~2024-06-14] VITALS: Ht 172.7 cm; Wt 105.0 kg
[2024-06-14] MEDS ORDERED: ATOR1TAB19 (09:07)
[2024-06-14] MEDS ORDERED: AMOX500C (09:07)
[2024-06-14 12:04] LABS: BASO # 0.1 10^3/uL (0.0-0.2); BASO % 0.8 % (0.0-1.0); EOS # 0.3 10^3/uL (0.0-0.5); EOS % 4.5 % (0.0-3.0); HEMATOCRIT 35.6 % (36.0-47.0); HEMOGLOBIN 11.3 g/dl (12.0-15.5); LYMPH # 1.8 10^3/uL (1.5-5.0); LYMPH % 28.7 % (24.0-44.0); MEAN CORPUSCULAR HEMOGLOBIN 27.1 pg (27.0-33.0); MEAN CORPUSCULAR HGB CONC 31.7 g/dl (32.0-36.5); MEAN CORPUSCULAR VOLUME 85.4 fl (80.0-96.0); MONO # 0.6 10^3/uL (0.0-0.8); MONO % 9.4 % (2.0-8.0); NEUTROPHILS # 3.6 10^3/uL (1.5-8.5); NEUTROPHILS % 56.4 % (36.0-66.0); PLATELET COUNT, AUTOMATED 332 10^3/uL (150-450); RED BLOOD COUNT 4.17 10^6/uL (4.00-5.40); WHITE BLOOD COUNT 6.4 10^3/uL (4.0-10.0)
[2024-06-14 12:31] LABS: ALBUMIN 3.5 G/DL (3.2-5.2); ALKALINE PHOSPHATASE 60 U/L (35-104); ALT/SGPT < 9 U/L (7.0-40); AST/SGOT 10 U/L (<34); BILIRUBIN,DIRECT 0.1 MG/DL (<0.4); BILIRUBIN,TOTAL 0.3 MG/DL (0.3-1.2); BLOOD UREA NITROGEN 13 MG/DL (9-23); CALCIUM LEVEL 9.4 MG/DL (8.5-10.1); CARBON DIOXIDE LEVEL 27 MMOL/L (20-31); CHLORIDE LEVEL 104 MMOL/L (98-107); GLOMERULAR FILTRATION RATE > 60.0 (>58); GLUCOSE, FASTING 106 MG/DL (60-100); POTASSIUM SERUM 4.6 MMOL/L (3.5-5.1); SODIUM LEVEL 139 MMOL/L (136-145); TOTAL PROTEIN 8.3 G/DL (5.7-8.2)
[2024-06-14] MEDS: MORPHINE 4 MG/ML 1ML VIAL IV ONE (12:44)
[2024-06-14] MEDS ORDERED: PERC5TAB12 PO (13:08)
[2024-06-14 13:20] VITALS: BP 136/76; TEMP 97.4; O2SAT 100
== END 2024-06-14 13:22 | disposition home or self-care (01) ==
LOC: M ED 08:51
DX: L73.2 Hidradenitis suppurativa (principal); R52 Pain, unspecified; E61.1 Iron deficiency; F41.9 Anxiety disorder, unspecified; E11.9 Type 2 diabetes mellitus without complications; Z79.2 Long term (current) use of antibiotics; Z79.02 Long term (current) use of antithrombotics/antiplatelets; Z79.4 Long term (current) use of insulin; Z79.899 Other long term (current) drug therapy

== ENCOUNTER → 2024-07-06 | Outpatient (REF) | payer OTHER ==
[~2024-07-06] MED LIST changes: +AMOX500C; +ATOR1TAB19
== END ==
LOC: M SFHCRHEU 11:11
PROVIDERS: ATTEND Internal Medicine
DX: E55.9 Vitamin D deficiency, unspecified (principal); R79.0 Abnormal level of blood mineral

== ENCOUNTER → 2024-08-04 | Outpatient (CLI) | payer OTHER ==
[2024-08-04 14:10] LABS: MAGNESIUM LEVEL 1.7 MG/DL (1.8-2.4)
[2024-08-04 14:16] LABS: TOTAL 25(OH) VITAMIN D 34.6 NG/ML (20.0-100.0)
[2024-08-04 14:34] LABS: HEPATITIS B SURFACE ANTIGEN NEGATIVE (NEGATIVE)
[2024-08-04 14:47] LABS: HIV 1&2 SCREEN NEGATIVE (NEGATIVE)
[2024-08-04 14:55] LABS: HEPATITIS B CORE ANTIBODY IGM NEGATIVE (NEGATIVE); HEPATITIS C VIRUS ABY INDEX 0.13 INDEX (<0.8)
== END ==
LOC: M PLALAB 11:04
PROVIDERS: ATTEND Internal Medicine
DX: E55.9 Vitamin D deficiency, unspecified (principal); R79.0 Abnormal level of blood mineral; L73.2 Hidradenitis suppurativa

== ENCOUNTER → 2025-01-18 | Outpatient (REF) | payer OTHER, MEDICAID ==
[2025-01-18 17:57] LABS: CREATININE, URINE 170.6 MG/DL; MALB URINE SIEMENS 137.0 MG/L; MAU/CREAT RATIO 80.3 MCG/MG (0.0-30.0)
== END ==
LOC: M LAB REF 16:57
PROVIDERS: ATTEND Nurse Practitioner Family
DX: E11.9 Type 2 diabetes mellitus without complications (principal)